=== PATIENT | female | born 1940 | race Caucasian/White ===

== ENCOUNTER → 2016-07-24 | Outpatient (CLI) | payer MEDICARE, BC ==
[~2016-07-24] MED LIST: ASPI-611 PO; CALC-278 PO; CHOL100017 PO; FOLIC; LEVO75TA4 PO; MAGN30OR PO; MAGN400C PO; MULT-806 PO; ONDA8TAB5; RANI150T12 PO; VITA1CAP
[2016-07-24 10:46] LABS: BASOPHILS % (AUTO) 0.4 % (0-2); EOSINOPHILS # (AUTO) 0.2 T/MM3 (0-0.5); EOSINOPHILS % (AUTO) 1.8 % (0-4); HCT - HEMATOCRIT 32.3 % (36-46); HGB - HEMOGLOBIN 10.2 GM/DL (12-16); IMMATURE GRANULOCYTE # (AUTO) 0.01 T/MM3 (0.00-0.03); IMMATURE GRANULOCYTE % (AUTO) 0.1 % (0.0-0.5); LYMPHOCYTES # (AUTO) 0.8 T/MM3 (1-4.8); LYMPHOCYTES % (AUTO) 7.5 % (23-45); MEAN CORPUSCULAR HGB CONC(MCHC 31.6 GM/DL (31-37); MONOCYTES # (AUTO) 0.8 T/MM3 (0-0.8); MONOCYTES % (AUTO) 7.4 % (0-9.0); NEUTROPHILS #(AUTO)-ABSOLUTE 9.2 T/MM3 (1.8-7.7); NEUTROPHILS % (AUTO) 82.8 % (33-66); WBC - WHITE BLOOD COUNT 11.1 T/MM3 (4.5-11.0)
[2016-07-24 10:57] LABS: ALBUMIN 3.6 G/DL (3.5-5.0); ALBUMIN/GLOBULIN RATIO 1.2 RATIO (1.1-2.2); ALKALINE PHOSPHATASE 61 U/L (38-126); ALT (SGPT) 20 U/L (9-52); ANION GAP 8 MEQ/L (5-15); AST (SGOT) 25 U/L (14-36); BUN/CREATININE RATIO 26 RATIO (6-26); CALCIUM 9.1 MG/DL (8.4-10.2); CHLORIDE 102 MEQ/L (98-107); CO2 - CARBON DIOXIDE 29 MEQ/L (22-30); CREATININE 0.8 MG/DL (0.7-1.2); GLOMERULAR FILTRATION RATE 70; GLUCOSE 119 MG/DL (65-110); MAGNESIUM 1.8 MG/DL (1.6-2.3); POTASSIUM 4.2 MEQ/L (3.6-5); SODIUM 139 MEQ/L (134-144); TOTAL PROTEIN 6.5 G/DL (6.3-8.2)
== END ==
LOC: LABN 10:41
PROVIDERS: ATTEND Internal Medicine Medical Oncology
DX: D70.1 Agranulocytosis secondary to cancer chemotherapy (principal); D64.81 Anemia due to antineoplastic chemotherapy
CPT/HCPCS: 80053; 83735; 85025

== ENCOUNTER 2016-08-28 15:21 | Observation (INO) | payer MEDICARE, BC ==
[~2016-08-28] VITALS: Ht 157.5 cm; Wt 61.2 kg
--- OUTSIDE RECORDS SUMMARY | 2016-08-28 15:25 | XMS REPORT | Referral Summary ---
Author Author [facility] Organization [facility] Address Unknown Phone Unavailable Care Team Providers Care Dean Of Students Name Role Phone Kandis Hearn Primary Care Physician [phone] Encounter VC Date(s): 09/15/14 - 09/15/14 [facility] [address] [place] [address] LALI Valles [id number] Discharge Diagnosis: Hypothyroidism Discharge Diagnosis: H/O ovarian cancer Discharge Diagnosis: Orthostatic hypotension Discharge Disposition: 01-Home or Self Care Attending Physician: Steve Hearn MD Admitting Physician: Steve Hearn MD Vital Signs Most recent to 1 oldest [Reference Range]: Temperature Tympanic 36.6 degC [36.6-38.1 degC] (09/15/14 11:20 AM) Peripheral Pulse 92 bpm Rate [60-100 bpm] (09/15/14 11:20 AM) Respiratory Rate 16 br/min [14-20 br/min] (09/15/14 11:20 AM) Blood Pressure 130/62 mmHg [90-140/60-90 mmHg] (09/15/14 11:20 AM) SpO2 96 % (09/15/14 11:20 AM) Problem List Condition Effective Dates Status Health Status Informant Hodgkins Active disease(Confirmed) Ovarian Active cancer(Confirmed) Allergies, Adverse Reactions, Alerts Substance Reaction Severity Status Bactrim Active Medications aspirin 81 mg, Oral, Daily, 0 Refill(s) Start Date: 05/19/14 Status: Ordered Calcium 600+D 1 tabs, Oral, Daily, 0 Refill(s) Start Date: 05/19/14 Status: Ordered folic acid 0.4 mg, Oral, Daily, 0 Refill(s) Start Date: 05/19/14 Status: Ordered HYDROcodone-acetaminophen 5 mg-325 mg oral tablet 1 tabs, Oral, q4hr, as needed for pain, 0 Refill(s) Start Date: 10/19/14 Status: Ordered levothyroxine 75 mcg (0.075 mg) oral tablet 75 mcg 1 tabs, Oral, Daily, # 90 tabs, 1 Refill(s), Pharmacy: [facility] , 1 tabs Oral Daily Start Date: 03/13/15 Status: Ordered magnesium oxide 400 mg (241.3 mg elemental magnesium) oral tablet tabs, Oral, Daily, 0 Refill(s) Start Date: 05/19/14 Status: Ordered multivitamin Daily, 0 Refill(s) Start Date: 10/19/14 Status: Ordered ondansetron 8 mg oral tablet 1 tabs, Oral, q8hr, as needed for nausea/vomiting, 0 Refill(s) Start Date: 05/19/14 Status: Ordered Vitamin D3 400 intl units oral tablet 400 Intl_Units 1 tabs, Oral, Daily, 0 Refill(s) Start Date: 10/19/14 Status: Ordered Results Chemistry Most recent to 1 oldest [Reference Range]: T4 Free [0.7-1.5 1.4 ng/dL ng/dL] (09/15/14 12:23 PM) TSH [0.35-4.94] 0.36 (09/15/14 12:23 PM) Immunizations No data available for this section Procedures Procedure Date Related Diagnosis Body Site Cholecystectomy 2009 Hysterectomy 1988 Appendectomy Social History Social History Type Response Smoking Status Never smoker Assessment and Plan Extracted from: Title: Ambulatory Patient Education Author: Steve Hearn MD Date: 09/15 Family Medicine Hypothyroidism The thyroid is a large gland located in the lower front of your neck. The thyroid gland helps control metabolism. Metabolism is how your body handles food. It controls metabolism with the hormone thyroxine. When this gland is underactive (hypothyroid), it produces too little hormone. CAUSES These include: Absence or destruction of thyroid tissue. Goiter due to iodine deficiency. Goiter due to medications. Congenital defects (since ). Problems with the pituitary. This causes a lack of TSH (thyroid stimulating hormone). This hormone tells the thyroid to turner machine more hormone. SYMPTOMS Lethargy (feeling as though you have no energy) Cold intolerance Weight gain (in spite of normal food intake) Dry skin Coarse hair Menstrual irregularity (if severe, may lead to infertility) Slowing of thought processes Cardiac problems are also caused by insufficient amounts of thyroid hormone. Hypothyroidism in the is cretinism, and is an extreme form. It is important that this form be treated adequately and immediately or it will lead rapidly to retarded physical and mental development. DIAGNOSIS To prove hypothyroidism, your caregiver may do blood tests and ultrasound tests. Sometimes the signs are hidden. It may be necessary for your caregiver to watch this illness with blood tests either before or after diagnosis and treatment. TREATMENT Low levels of thyroid hormone are increased by using synthetic thyroid hormone. This is a safe, effective treatment. It usually takes about four weeks to gain the full effects of the medication. After you have the full effect of the medication, it will generally take another four weeks for problems to leave. Your caregiver may start you on low doses. If you have had heart problems the dose may be gradually increased. It is generally not an emergency to get rapidly to normal. HOME CARE INSTRUCTIONS Take your medications as your caregiver suggests. Let your caregiver know of any medications you are taking or start taking. Your caregiver will help you with dosage schedules. As your condition improves, your dosage needs may increase. It will be necessary to have continuing blood tests as suggested by your caregiver. Report all suspected medication side effects to your caregiver. SEEK MEDICAL CARE IF: Seek medical care if you develop: Sweating. Tremulousness (tremors). Anxiety. Rapid weight loss. Heat intolerance. Emotional swings. Diarrhea. Weakness. SEEK IMMEDIATE MEDICAL CARE IF: You develop chest pain, an irregular heart beat (palpitations ), or a rapid heart beat. MAKE SURE YOU: Understand these instructions. Will watch your condition. Will get help right away if you are not doing well or get worse. Document Released: 04/27/2006 Document Revised: 07/19/2012 Document Reviewed: [employer] Patient Information 2014 [employer]. Follow Up With: Where: When: Steve Hearn [address] [place] [address] Drive; Via [facility] [place] [address] [employer] ([employer] In 4 months 01/16/2015 Comments: Extracted from: Title: Office Visit Note Author: Steve Hearn MD Date: 09/15/14 Assessment/Plan H/O ovarian cancer She continues on chemotherapy. Ordered: Office Visit Level 4 Est 21268 Hypothyroidism TSH and free T4 levels will be obtained. Ordered: Free T4 Office Visit Level 4 Est 74950 TSH 3rd Generation Orthostatic hypotension She will continue to increase her fluid intake. Ordered: Office Visit Level 4 Est 89620 Orders: levothyroxine, 1 tabs, Oral, Daily, # 90 tabs, 1 Refill(s), Pharmacy: [facility], 1 tabs Oral Daily
--- OUTSIDE RECORDS SUMMARY | 2016-08-28 15:25 | XMS REPORT | Referral Summary ---
Author Author [facility] Organization [facility] Address Unknown Phone Unavailable Care Team Providers Care Aeronautical Design Engineer Name Role Phone Kandis Hearn Primary Care Physician [phone] Encounter [facility] [id number] Date(s): 10/19/14 - 10/19/14 [facility] [address] [place], [place] [address] Discharge Diagnosis: Cervicalgia Discharge Diagnosis: Degenerative disc disease, cervical Discharge Diagnosis: Spondylosis of cervical joint Discharge Disposition: -Home or Self Care Attending Physician: Mor Velazquez Admitting Physician: Mor Velazquez Referring Physician: Steve Hearn MD Vital Signs Most recent to 1 oldest [Reference Range]: Blood Pressure 118/74 mmHg [90-140/60-90 mmHg] (10/19/14 10:50 AM) Problem List Condition Effective Dates Status [...] Daily, # 90 tabs, 1 Refill(s), Pharmacy: [facility] , 1 tabs Oral Daily Start [...] Refill(s) Start Date: 10/19/14 Status: Ordered Results No data available for this section Immunizations No data available for this section Procedures Procedure Date Related Diagnosis Body Site Cholecystectomy 2009 Hysterectomy 1988 Appendectomy Social History Social History Type Response Smoking Status Never smoker Assessment and Plan Extracted from: Title: Office Visit Note Author: Mor Velazquez Date: 10/19/14 Assessment/Plan Cervicalgia Ordered: Request for Therapies Degenerative disc disease, cervical Ordered: Request for Therapies Spondylosis of cervical joint Ordered: Request for Therapies Dr. Ervin and I discussed with the patient as well as her son Ramses who accompanied her to her appointment her investigation results. She did have a cervical spine x-ray noting multiple levels of moderate to severe degenerative disc and facet arthropathy as well as some mild encroachment the neuroforamen at multiple levels. She also had a cervical MRI from [facility] from 10/09/2014 with some mild disc bulges and some mild bilateral recess narrowing at C3 4 disc bulging at C4 5 and C5 6 and some mild left lateral recess stenosis C5 6. Dr. Ervin and I discussed with her clinically she appears have a combination of symptoms from some early cervical radiculopathy as well as mechanical neck pain on the left from C4 to 6 joints as well as perhaps some pain coming from her left shoulder joint. Discussed he could consider interventional treatments although she has not had any formal physical therapy and she will try this first. She was written an order for physical therapy Dr. Ervin recommend including cervical traction. This is 2 times a week for 4 weeks. She is taking some hydrocodone through her primary care. She is not currently taking any anti-inflammatories and Dr. Ervin suggested that she could consider trying [id number] ibuprofen up to 2 tablets 3 times a day if needed with food just on a short-term basis to see if it helps settle down some of the symptoms. There is no surgical indication at this time. She has no myelopathic signs. She comes from some distance away and so was not made a follow-up appointment but was instructed if her symptoms persisted to call back and schedule follow-up appointment will discuss interventional procedures further. She was provided copies of her x-ray and MRI reports. She and her son voiced understanding and agrees to the above plans. Physical exam findings history present illness recommendations are performed with an agreement with Dr. Metz findings. Addendum Also discussed getting an x-ray of her left shoulder if symtpoms persist. by Mor Velazquez on October 19, 2014 12:39:04 CDT
--- OUTSIDE RECORDS SUMMARY | 2016-08-28 15:25 | XMS REPORT | CCD ---
Author Author JAZMÍN CARRANZA Organization Unknown Address [address] [place], [place] [id number] Phone 0 Care Team Providers Care Rn Private Duty Name Role Phone PETER LAWSON Attending Physician [phone] ЕЛЕНА ELLISON Rounding Physician 0 Vital Signs Unknown or Not Available. Allergies Allergy Code Allergy Type Reaction Status SULFA (sulfonamide) 0 Drug allergy Active BACTRIM 787415 Drug allergy Active Procedures Unknown or Not Available. History of Immunizations Immunization Code Date Influenza, seasonal, injectable 141 02/22 Problems Unknown or Not Available. Results Unknown or Not Available. Active Medications Medication Code Dose Units Frequency Route Modification Start Date/Time Calcium 500 + D 500MG-125IU Oral Tablet 1813513 1 EACH TWICE A DAY ORAL 03/16/2012 09:45 Prescription Detail 1 EACH ORAL TWICE A DAY Aspirin 81MG Oral Tablet [id number] 81 MILLIGRAMS DAILY ORAL 03/16/2012 09:45 Prescription Detail 81 MILLIGRAMS ORAL DAILY Medications Administered During Visit Unknown or Not Available. Encounters Encounter Diagnosis Diagnosis Code Start Date Other abnormal and inconclusive findings on diagnostic imaging of breast R928 06/13/2015 Social History Smoking Status Code Start Date End Date Never smoker [id number] Patient Decision Aids Unknown or Not Available. Discharge Instructions [facility] were [facility] on 06/13/2015 with a principal diagnosis of Other abnormal and inconclusive findings on diagnostic imaging of breast. You were discharged from [facility] on 06/13/2015. Should you have any questions prior to discharge, please contact a member of your healthcare team. If you have left the hospital and have any questions, please contact your primary care physician. Chief Complaint and Reason For Visit Chief Complaint Date of Onset MM BILAT SCREEN Function Status Unknown or Not Available. Plan of Care Unknown or Not Available. Referral/Transition of Care Unknown or Not Available.
--- OUTSIDE RECORDS SUMMARY | 2016-08-28 15:25 | XMS REPORT | Referral Summary ---
Author Author [facility] Organization [facility] Address Unknown Phone Unavailable Care Team Providers Care Cleaner Assistant Name Role Phone Kandis Hearn Primary Care Physician [phone] Encounter [facility] Date(s): 09/15/14 - 09/15/14 [facility] [address] [place] [address] LALI Valles [address] Discharge Diagnosis: Hypothyroidism Discharge Diagnosis: H/O [...] Daily, # 90 tabs, 1 Refill(s), Pharmacy: [facility] , 1 tabs Oral Daily Start [...] hormone). This hormone tells the thyroid to heel turner more hormone. SYMPTOMS Lethargy (feeling as though [...] Released: 04/27/2006 Document Revised: 07/19/2012 Document Reviewed: [employer]Care Patient Information 2014 [employer]. Follow Up With: Where: When: Steve Hearn [address] [place] [address] Drive; Via [facility] [place] [address] [employer] ([employer] In 4 months 01/16/2015 Comments: Extracted from: Title: Office Visit Note Author: Steve Hearn MD Date: 09/15/14 Assessment/Plan H/O ovarian cancer She continues on chemotherapy. Ordered: Office Visit Level 4 Est 02408 Hypothyroidism TSH and free T4 levels will be obtained. Ordered: Free T4 Office Visit Level 4 Est 94895 TSH 3rd Generation Orthostatic hypotension She will continue to increase her fluid intake. Ordered: Office Visit Level 4 Est 18696 Orders: levothyroxine, 1 tabs, Oral, Daily, # 90 tabs, 1 Refill(s), Pharmacy: [facility], 1 tabs Oral Daily
--- OUTSIDE RECORDS SUMMARY | 2016-08-28 15:25 | XMS REPORT | Referral Summary ---
Author Author [facility] Organization [facility] Address Unknown Phone Unavailable Care Team Providers Care Crushing Foreman Name Role Phone Yamile Dallas Primary Care Physician [phone] Encounter [facility] Date(s): 11/06/15 - 11/06/15 [facility] [address] [place] [address] Discharge Disposition: 01-Home or Self Care Attending Physician: Zeke Whitney MD Admitting Physician: Zeke Whitney MD Vital Signs No data available for this section Problem List Condition Effective Dates Status Health Status Informant At risk of pressure Active sore(Confirmed) Hodgkins Active disease(Confirmed) Hypothyroidism(Confi Active patient rmed) Impaired skin Active integrity(Confirmed) 1 Ovarian Active cancer(Confirmed) Tissue perfusion Active alteration(Confirmed )2 1Problem added automatically by system based on initiation of Impaired Skin Integrity Plan of Care 2Problem added automatically by system based on initiation of Tissue Perfusion Cerebral Plan of Care Allergies, Adverse Reactions, Alerts Substance Reaction Severity Status Bactrim Active Medications aspirin 81 mg, Oral, Daily, 0 Refill(s) Start Date: 05/19/14 Status: Ordered Calcium 600+D 1 tabs, Oral, Daily, 0 Refill(s) Start Date: 05/19/14 Status: Ordered folic acid 0.4 mg, Oral, Daily, 0 Refill(s) Start Date: 05/19/14 Status: Ordered furosemide 20 mg oral tablet 20 mg 1 tabs, Oral, Daily, # 30 tabs, 5 Refill(s) Start Date: 10/04/15 Status: Ordered HYDROcodone-acetaminophen 5 mg-325 mg oral tablet 1 tabs, Oral, q4hr, as needed for pain, 0 Refill(s) Start Date: 10/19/14 Status: Ordered levothyroxine 75 mcg (0.075 mg) oral tablet 75 mcg 1 tabs, Oral, Daily, # 90 tabs, 1 Refill(s), Pharmacy: [facility] , 1 tabs Oral [...] Refill(s) Start Date: 10/19/14 Status: Ordered Results Hematology Most recent to 1 oldest [Reference Range]: WBC [4.8-10.8 6.4 10*3/uL 10*3/uL] (11/06/15 3:44 PM) RBC [4.00-5.20] 3.38 *LOW* (11/06/15 3:44 PM) Hgb [12.0-16.0 9.7 gm/dL gm/dL] *LOW* (11/06/15 3:44 PM) Hct [37.0-47.0 %] 30.3 % *LOW* (11/06/15 3:44 PM) MCV [82.0-99.0 fL] 89.6 fL (11/06/15 3:44 PM) MCH [27.0-32.0 pg] 28.7 pg (11/06/15 3:44 PM) MCHC [32.0-36.0 32.0 gm/dL gm/dL] (11/06/15 3:44 PM) RDW [11.5-14.5 %] 18.3 % *HI* (11/06/15 3:44 PM) Platelet [150-400 190 10*3/uL 10*3/uL] (11/06/15 3:44 PM) MPV [9.4-12.4 fL] 9.4 fL (11/06/15 3:44 PM) Immature 0.2 % Granulocytes (11/06/15 3:44 PM) [0.0-1.0 %] Neutrophils [51-75 74 % %] (11/06/15 3:44 PM) Lymphocytes [20-46 13 % %] *LOW* (11/06/15 3:44 PM) Monocytes [4-11 %] 9 % (11/06/15 3:44 PM) Eosinophils [0-4 %] 3 % (11/06/15 3:44 PM) Basophils [0-2 %] 0 % (11/06/15 3:44 PM) Neutro Absolute 4.76 10*3 [1.90-7.00 10*3] (11/06/15 3:44 PM) Lymph Absolute 0.80 10*3 [0.80-3.30 10*3] (11/06/15 3:44 PM) [place] Absolute 0.59 10*3 [0.30-1.00 10*3] (11/06/15 3:44 PM) Eos Absolute 0.22 10*3 [0.00-0.50 10*3] (11/06/15 3:44 PM) Baso Absolute 0.02 10*3 [0.00-0.20 10*3] (11/06/15 3:44 PM) Nucleated RBC 0.0 /100 WBC Automated [0 /100 (11/06/15 3:44 PM) WBC] Coagulation Most recent to 1 oldest [Reference Range]: INR [0.9-1.2] 1.0 (11/06/15 3:43 PM) PTT [25.0-35.0 30.0 seconds seconds] (11/06/15 3:43 PM) Fibrinogen Lvl 346 mg/dL [187-520 mg/dL] (11/06/15 3:43 PM) Chemistry Most recent to 1 oldest [Reference Range]: Sodium Lvl [136-144 138 mEq/L mEq/L] (11/06/15 3:43 PM) Potassium Lvl 3.7 mEq/L [3.6-5.1 mEq/L] (11/06/15 3:43 PM) Chloride [99-109 105 mEq/L mEq/L] (11/06/15 3:43 PM) CO2 [22-32 mEq/L] 27 mEq/L (11/06/15 3:43 PM) AGAP [3-20] 6 (11/06/15 3:43 PM) BUN [4-20 mg/dL] 17 mg/dL (11/06/15 3:43 PM) Glucose Lvl [70-100 100 mg/dL mg/dL] (11/06/15 3:43 PM) Creatinine Lvl 0.99 mg/dL [0.44-1.03 mg/dL] (11/06/15 3:43 PM) eGFR [>60] 54 1 *ABN* (11/06/15 3:43 PM) Calcium Lvl 8.9 mg/dL [8.6-10.0 mg/dL] (11/06/15 3:43 PM) Albumin Lvl [3.5-4.8 3.2 gm/dL gm/dL] *LOW* (11/06/15 3:43 PM) Total Protein 6.3 gm/dL [6.1-7.9 gm/dL] (11/06/15 3:43 PM) Globulin [1.9-4.3 3.1 gm/dL gm/dL] (11/06/15 3:43 PM) ALT [14-54 U/L] 14 U/L (11/06/15 3:43 PM) AST [15-41 U/L] 26 U/L (11/06/15 3:43 PM) Alk Phos [26-104 44 U/L U/L] (11/06/15 3:43 PM) Bili Total [0.2-1.2 0.6 mg/dL 2 mg/dL] (11/06/15 3:43 PM) BNP [0-99 pg/mL] 183 pg/mL *HI* (11/06/15 3:43 PM) Prealbumin [18-38 18 mg/dL mg/dL] (11/06/15 3:43 PM) Hgb A1c [4.1-5.6 %] 5.5 % (11/06/15 3:43 PM) eAvg Glucose 111.2 mg/dL (11/06/15 3:43 PM) 1Result Comment: Multiply eGFR results by 1.21 for race. 2Result Comment: Naproxen, specifically the metabolite O-desmethylnaproxen, may cause spurious elevation in Total Bilirubin levels. Urinalysis Most recent to 1 oldest [Reference Range]: UA Color Yellow (11/06/15 4:20 PM) UA Appear Cloudy *ABN* (11/06/15 4:20 PM) UA pH [5.0-8.0] 7.0 (11/06/15 4:20 PM) UA Leuk Est Trace [Negative] *ABN* (11/06/15 4:20 PM) UA Nitrite Negative [Negative] (11/06/15 4:20 PM) UA Protein Negative [Negative] (11/06/15 4:20 PM) UA Glucose Negative [Negative] (11/06/15 4:20 PM) UA Ketones Negative [Negative] (11/06/15 4:20 PM) UA Urobilinogen Negative [<1.0] (11/06/15 4:20 PM) UA Bili [Negative] Negative (11/06/15 4:20 PM) UA Blood [Negative] Negative (11/06/15 4:20 PM) UA Spec Grav 1.015 [1.003-1.030] (11/06/15 4:20 PM) Type Clean Catch (11/06/15 4:20 PM) UA WBC [0-4] 0-2 (11/06/15 4:20 PM) UA RBC [0-2] 0-2 (11/06/15 4:20 PM) Epithelial Cells None Seen (11/06/15 4:20 PM) UA Bacteria None Seen (11/06/15 4:20 PM) Crystals Amorphous (11/06/15 4:20 PM) Immunizations No data available for this section Procedures Procedure Date Related Diagnosis Body Site Catheterization Right Heart (Left, Groin)1 10/02/15 Valvuloplasty (Left, Groin)2 10/02/15 Cholecystectomy 2009 Hysterectomy 1988 Appendectomy PORT A CATH 1auto-populated from documented surgical case 2auto-populated from documented surgical case Social History Social History Type Response Smoking Status Never smoker Assessment and Plan No data available for this section
--- OUTSIDE RECORDS SUMMARY | 2016-08-28 15:25 | XMS REPORT | CCD ---
Author Author JAZMÍN CARRANZA Organization Unknown Address [address] [place], [place] [address] Phone 0 Care Team Providers Care Manufacturing Systems Engineer Name Role Phone PETER LAWSON Attending Physician [phone] ЕЛЕНА ELLISON Rounding Physician 0 Vital Signs Unknown or Not Available. Allergies Allergy Code Allergy Type Reaction Status SULFA (sulfonamide) 0 Drug allergy Active BACTRIM 917831 Drug allergy Active Procedures Unknown or Not Available. History of Immunizations Immunization Code Date Influenza, seasonal, injectable 141 02/22 Problems Unknown or Not Available. Results Unknown or Not Available. Active Medications Medication Code Dose Units Frequency Route Modification Start Date/Time Aspirin 81MG Oral Tablet [id number] 81 MILLIGRAMS DAILY ORAL 03/16/2012 09:45 Prescription Detail 81 MILLIGRAMS ORAL DAILY Medications Administered During Visit Unknown or Not Available. Encounters Encounter Diagnosis Diagnosis Code Start Date Mammographic microcalcification found on diagnostic imaging of breast R920 01/16/2016 Social History Smoking Status Code Start Date End Date Never smoker [id number] Patient Decision Aids Unknown or Not Available. Discharge Instructions You were admitted to [facility] on 01/16/2016 09:54 with a principal diagnosis of Mammographic microcalcification found on dx imaging of You were discharged from [facility] on 01/16/2016 09:54 Should you have any questions prior to discharge, please contact a member of your healthcare team. If you have left the hospital and have any questions, please contact your primary care physician. Chief Complaint and Reason For Visit Chief Complaint Date of Onset MM UNILAT DIAG Function Status Unknown or Not Available. Plan of Care Unknown or Not Available. Referral/Transition of Care Unknown or Not Available.
--- OUTSIDE RECORDS SUMMARY | 2016-08-28 15:25 | XMS REPORT | Referral Summary ---
Author Author [facility] Organization [facility] Address Unknown Phone Unavailable Care Team Providers Care Optical Store Manager Name Role Phone Kandis Hearn Primary Care Physician [phone] Encounter [facility] Date(s): 09/15/14 - 09/15/14 [facility] [address] [place] [address] LALI Valles [id number] Discharge Diagnosis: Hypothyroidism Discharge Diagnosis: H/O ovarian [...] # 90 tabs, 1 Refill(s), Pharmacy: [facility] , 1 tabs Oral Daily [...] hormone). This hormone tells the thyroid to apple turner more hormone. SYMPTOMS Lethargy (feeling as [...] Released: 04/27/2006 Document Revised: 07/19/2012 Document Reviewed: [employer] Patient Information 2014 [employer]. Follow Up With: Where: When: Steve Hearn [address] [place] [address] Drive; [place] [address] [place] ([employer] In 4 months 01/16/2015 Comments: Extracted from: Title: Office Visit Note Author: Steve Hearn MD Date: 09/15/14 Assessment/Plan H/O ovarian cancer She continues on chemotherapy. Ordered: Office Visit Level 4 Est 74198 Hypothyroidism TSH and free T4 levels will be obtained. Ordered: Free T4 Office Visit Level 4 Est 85379 TSH 3rd Generation Orthostatic hypotension She will continue to increase her fluid intake. Ordered: Office Visit Level 4 Est 29937 Orders: levothyroxine, 1 tabs, Oral, Daily, # 90 tabs, 1 Refill(s), Pharmacy: [facility], 1 tabs Oral Daily
--- OUTSIDE RECORDS SUMMARY | 2016-08-28 15:25 | XMS REPORT | Referral Summary ---
Author Author [facility] Organization [facility] Address Unknown Phone Unavailable Care Team Providers Care Major Account Representative Name Role Phone Yamile Dallas Primary Care Physician [phone] Encounter VC SOLOMON [id number] Date(s): 12/11/15 - 12/11/15 [facility] [address] [place] [address] Discharge Disposition: 01-Home or Self Care Attending Physician: Zeke Whitney MD Admitting Physician: Zeke Whitney MD Vital Signs No data available for this section Problem List Condition Effective Dates Status Health Status Informant At risk of pressure Resolved sore(Confirmed) Cardiac Resolved disorder(Confirmed)1 Hodgkins Active disease(Confirmed) Hypothyroidism(Confi Active patient rmed) Impaired skin Active integrity(Confirmed) 2 Ovarian Active cancer(Confirmed) Tissue perfusion Resolved alteration(Confirmed )3 1Problem added automatically by system based on initiation of Cardiac Output/ Ineffective Cardiac Perfusion Plan of Care 2Problem added automatically by system based on initiation of Impaired Skin Integrity Plan of Care 3Problem added automatically by system based on initiation [...] 5 Refill(s) Start Date: 10/04/15 Status: Ordered levothyroxine 75 mcg (0.075 mg) oral tablet 75 mcg 1 tabs, Oral, Daily, # 90 tabs, 1 Refill(s), Pharmacy: [facility] , 1 tabs Oral Daily Start Date: 03/13/15 Status: Ordered magnesium oxide 400 mg (241.3 mg elemental magnesium) oral tablet tabs, Oral, Daily, 0 Refill(s) Start Date: 05/19/14 Status: Ordered multivitamin 1 tabs, Oral, Daily, 0 Refill(s) Start Date: 10/19/14 Status: Ordered Plavix 75 mg oral tablet 75 mg 1 tabs, Oral, Daily, # 30 tabs, 5 Refill(s) Start Date: 11/09/15 Status: Ordered potassium chloride 10 mEq oral tablet, extended release 10 mEq 1 tabs, Oral, Daily, # 30 tabs, 5 Refill(s) Start Date: 11/09/15 Status: Ordered Vitamin D3 400 intl units oral tablet 400 Intl_Units 1 tabs, Oral, Daily, 0 Refill(s) Start Date: 10/19/14 Status: Ordered Results No data available for this section Immunizations No data available for this section Procedures Procedure Date Related Diagnosis Body Site Replacement Aortic Valve Transcatheter 11/07/15 Transfemoral Approach1 Catheterization Right Heart (Left, Groin)2 10/02/15 Valvuloplasty (Left, Groin)3 10/02/15 Cholecystectomy 2009 Hysterectomy 1988 Appendectomy PORT A CATH 1auto-populated from documented surgical case 2auto-populated from documented surgical case 3auto-populated from documented surgical case Social History Social History Type Response Smoking Status Never smoker Assessment and Plan No data available for this section
--- OUTSIDE RECORDS SUMMARY | 2016-08-28 15:25 | XMS REPORT | Referral Summary ---
Author Author [facility] Organization [facility] Address Unknown Phone Unavailable Care Team Providers Care Clinic Manager Name Role Phone Kandis Hearn Primary Care Physician [phone] Encounter VC Date(s): 09/15/14 - 09/15/14 [facility] [address] [place] [address] LALI Valles [id number] Discharge Diagnosis: Hypothyroidism Discharge Diagnosis: H/O [...] Daily, # 90 tabs, 1 Refill(s), Pharmacy: [facility] , 1 tabs Oral [...] hormone). This hormone tells the thyroid to automatic glove turner and former more hormone. SYMPTOMS Lethargy (feeling as though [...] Released: 04/27/2006 Document Revised: 07/19/2012 Document Reviewed: [employer] Patient Information 2014 [employer]. Follow Up With: Where: When: Steve Hearn [address] [place] [address] Drive; [place] [facility] [place] [address] el? (1Tripping In 4 months 01/16/2015 Comments: Extracted from: Title: Office Visit Note Author: Steve Hearn MD Date: 09/15/14 Assessment/Plan H/O ovarian cancer She continues on chemotherapy. Ordered: Office Visit Level 4 Est 19067 Hypothyroidism TSH and free T4 levels will be obtained. Ordered: Free T4 Office Visit Level 4 Est 72790 TSH 3rd Generation Orthostatic hypotension She will continue to increase her fluid intake. Ordered: Office Visit Level 4 Est 31997 Orders: levothyroxine, 1 tabs, Oral, Daily, # 90 tabs, 1 Refill(s), Pharmacy: [facility], 1 tabs Oral Daily
--- OUTSIDE RECORDS SUMMARY | 2016-08-28 15:25 | XMS REPORT | CCD ---
Author Author JAZMÍN CARRANZA Organization Unknown Address [address], [place] [address] Phone 0 Care Team Providers Care Winding Lathe Operator Name Role Phone Leroy WOODS Attending Physician 0 Vital Signs Unknown or Not Available. Allergies Allergy Code Allergy Type Reaction Status SULFA (sulfonamide) 0 Drug allergy Active BACTRIM 518024 Drug allergy Active Procedures Unknown or Not Available. History of Immunizations Immunization Code Date Influenza, seasonal, injectable 141 02/22 Problems Unknown or Not Available. Results CREATININE - Collect Date/Time: 04/09/2016 13:48 Test Name Code Test Result Test Units Test Ref Range CREATININE 0.77 mg/ dL L=0.60 H=1.30 AGE 75 YEARS GFR 72.9 L=60.0 H=120 Active Medications Medication Code Dose Units Frequency Route Modification Start Date/Time Aspirin 81MG Oral Tablet [id number] 81 MILLIGRAMS DAILY ORAL 03/16/2012 09:45 Prescription Detail 81 MILLIGRAMS ORAL DAILY Medications Administered During Visit Unknown or Not Available. Encounters Encounter Diagnosis Diagnosis Code Start Date Other specified soft tissue disorders M7989 04/09/2016 Social History Smoking Status Code Start Date End Date Never smoker [id number] Patient Decision Aids Unknown or Not Available. Discharge Instructions You were admitted to [facility] on 04/09/2016 13:40 with a principal diagnosis of Other specified soft tissue disorders You had the following tests done: CREATININE You were discharged from [facility] on 04/09/2016 13:40 Should you have any questions prior to discharge, please contact a member of your healthcare team. If you have left the hospital and have any questions, please contact your primary care physician. Chief Complaint and Reason For Visit Chief Complaint Date of Onset CT SCAN/LAB Function Status Unknown or Not Available. Plan of Care Unknown or Not Available. Referral/Transition of Care Unknown or Not Available.
--- OUTSIDE RECORDS SUMMARY | 2016-08-28 15:26 | XMS REPORT | Referral Summary ---
Author Author [facility] Organization [facility] Address Unknown Phone Unavailable Care Team Providers Care Material Handler 1St Shift Name Role Phone Yamile Dallas Primary Care Physician [phone] Encounter VC Date(s): 05/27/16 - 05/27/16 [facility] [address] [place] [address] Discharge Disposition: 01-Home or Self Care Attending Physician: Zeke Whitney MD Vital Signs No [...] 0 Refill(s) Start Date: 05/19/14 Status: Ordered ferrous sulfate 1 tabs, Oral, BID, 0 Refill(s) Start Date: 05/27/16 Status: Ordered folic acid 0.4 mg, Oral, Daily, 0 Refill(s) Start Date: 05/19/14 Status: Ordered furosemide 20 mg oral tablet 20 mg 1 tabs, Oral, Daily, # 30 tabs, 5 Refill(s) Start Date: 10/04/15 Status: Ordered levothyroxine 75 mcg (0.075 mg) oral tablet 75 mcg 1 tabs, Oral, Daily, # 90 tabs, 1 Refill(s), Pharmacy: [facility] , 1 tabs Oral Daily Start Date: 03/13/15 Status: Ordered magnesium oxide 400 mg (241.3 mg elemental magnesium) oral tablet 400 mg 1 tabs, Oral, Daily, 0 Refill(s) Start Date: 05/19/14 Status: Ordered Misc Medication See Instructions, CANCER MEDICATIONS, 0 Refill(s) Start Date: 05/27/16 Status: Ordered multivitamin 1 tabs, Oral, Daily, 0 Refill(s) Start Date: 10/19/14 Status: Ordered potassium chloride 10 mEq oral tablet, extended release 10 mEq 1 tabs, Oral, Daily, # 30 tabs, 5 Refill(s) Start Date: 11/09/15 Status: Ordered Vitamin B12 1 tabs, Oral, Daily, 0 Refill(s) Start Date: 05/27/16 Status: Ordered Vitamin C 1 tabs, Oral, Daily, 0 Refill(s) Start Date: 05/27/16 Status: Ordered Vitamin D3 400 intl units [...] Extracted from: Title: Office Visit Note Author: Zeke Whitney MD Date: 05/27/16 Assessment/Plan NonrheumaticValvular Heart Disease - symptomatic critical aortic valve stenosisconsistent with NYHA class III. - s/p BAV on 10-06-2015 - s/p 25mm PORTICO TAVR using right percutaneous TransFemoral [id number]: ASA/Plavix - doing well. NYHA class I Echo with very good results Coronary artery disease - mild aneurysmin the mid LAD and mild to moderate at most moderate mid LAD disease - ASA/plavix Essential Hypertension - well controlled Hypothyroidism - continue replacement carotid artery disease with severe left stenosis in need to CEA
--- OUTSIDE RECORDS SUMMARY | 2016-08-28 15:26 | XMS REPORT | Referral Summary ---
Author Author [facility] Organization [facility] Address Unknown Phone Unavailable Care Team Providers Care Diesel Engine Operator Name Role Phone Kandis Hearn Primary Care Physician [phone] Encounter VC Date(s): 02/07/15 - 02/07/15 [facility] [address] [place] [address] LALI Valles [id number] Discharge Diagnosis: Sensation disturbance of skin Discharge Diagnosis: Personal history of ovarian cancer Discharge Disposition: 01-Home or Self Care Attending Physician: Steve Hearn MD Admitting Physician: Steve Haern MD Vital Signs Most recent to 1 oldest [Reference Range]: Temperature Tympanic 37.0 degC [36.6-38.1 degC] (02/07/15 1:24 PM) Peripheral Pulse 83 bpm Rate [60-100 bpm] (02/07/15 1:24 PM) Blood Pressure 124/70 mmHg [90-140/60-90 mmHg] (02/07/15 1:24 PM) SpO2 96 % (02/07/15 1:24 PM) Problem List Condition Effective Dates Status Health [...] levothyroxine 75 mcg (0.075 mg) oral tablet 1 tabs, Oral, Daily, # 90 tabs, 1 Refill(s), Pharmacy: [facility], 1 tabs Oral Daily Start Date: 09/15/14 Status: Ordered magnesium oxide 400 mg (241.3 mg elemental magnesium) oral tablet tabs, Oral, Daily, 0 Refill(s) Start Date: 05/19/14 Status: Ordered multivitamin Daily, 0 Refill(s) Start Date: 10/19/14 Status: Ordered ondansetron 8 mg oral tablet 1 tabs, Oral, q8hr, as needed for nausea/vomiting, 0 Refill(s) Start Date: 05/19/14 Status: Ordered topotecan 1 mg/mL intravenous solution See Instructions, Weekly dose per oncology, # 1 amp, 1 Refill(s), other reason ( Rx) Start Date: 01/16/15 Stop Date: 02/17/15 Status: Ordered Vitamin D3 400 intl units oral tablet 400 Intl_Units 1 tabs, Oral, Daily, 0 Refill(s) Start Date: 10/19/14 Status: Ordered Results Hematology Most recent to 1 oldest [Reference Range]: WBC [5.0-10.0 3.5 10*3/uL 10*3/uL] *LOW* (02/07/15 2:28 PM) RBC [3.70-5.20] 3.33 *LOW* (02/07/15 2:28 PM) Hgb [12.0-16.0 10.1 gm/dL gm/dL] *LOW* (02/07/15 2:28 PM) Hct [37.0-47.0 %] 31.0 % *LOW* (02/07/15 2:28 PM) MCV [80.0-96.0 fL] 93.1 fL (02/07/15 2:28 PM) MCH [26.0-34.0 pg] 30.3 pg (02/07/15 2:28 PM) MCHC [32.0-36.0 32.6 gm/dL gm/dL] (02/07/15 2:28 PM) RDW [0.0-14.5 %] 15.8 % *HI* (02/07/15 2:28 PM) Platelet [150-400 313 10*3/uL 10*3/uL] (02/07/15 2:28 PM) MPV [8.8-14.8 fL] 8.6 fL *LOW* (02/07/15 2:28 PM) Neutrophils [50-70 61 % %] (02/07/15 2:28 PM) Lymphocytes [20-40 18 % %] *LOW* (02/07/15 2:28 PM) Monocytes [4-8 %] 18 % *HI* (02/07/15 2:28 PM) Eosinophils [0-6 %] 3 % (02/07/15 2:28 PM) Basophils [0-2 %] 1 % (02/07/15 2:28 PM) Neutro Absolute 2.13 10*3 [2.50-7.00 10*3] *LOW* (02/07/15 2:28 PM) Lymph Absolute 0.62 10*3 [1.00-4.00 10*3] *LOW* (02/07/15 2:28 PM) [place] Absolute 0.63 10*3 [0.20-0.80 10*3] (02/07/15 2:28 PM) Eos Absolute 0.10 10*3 [0.00-0.60 10*3] (02/07/15 2:28 PM) Baso Absolute 0.04 [0.00-0.30] (02/07/15 2:28 PM) Immunizations No data available for this section Procedures Procedure Date Related Diagnosis Body Site Cholecystectomy 2009 Hysterectomy 1988 Appendectomy Social History Social History Type Response Smoking Status Never smoker Assessment and Plan Extracted from: Title: Ambulatory Patient Education Author: Steve Hearn MD Date: Family Medicine Paresthesia Paresthesia is an abnormal burning or prickling sensation. This sensation is generally felt in the hands, arms, legs, or feet. However, it may occur in any part of the body. It is usually not painful. The feeling may be described as: Tingling or numbness. "Pins and needles." Skin crawling. Buzzing. Limbs "falling asleep." Itching. Most people experience temporary (transient) paresthesia at some time in their lives. CAUSES Paresthesia may occur when you breathe too quickly (hyperventilation). It can also occur without any apparent cause. Commonly, paresthesia occurs when pressure is placed on a nerve. The feeling quickly goes away once the pressure is removed. For some people, however, paresthesia is a long-lasting (chronic) condition caused by an underlying disorder. The underlying disorder may be: A traumatic, direct injury to nerves. Examples include a: Broken (fractured) neck. Fractured skull. A disorder affecting the brain and spinal cord (central nervous system). Examples include: Transverse myelitis. Encephalitis. Transient ischemic attack. Multiple sclerosis. Stroke. Tumor or blood vessel problems, such as an arteriovenous malformation pressing against the brain or spinal cord. A condition that damages the peripheral nerves (peripheral neuropathy). Peripheral nerves are not part of the brain and spinal cord. These conditions include: Diabetes. Peripheral vascular disease. Nerve entrapment syndromes, such as carpal tunnel syndrome. Shingles. Hypothyroidism. Vitamin B12 deficiencies. Alcoholism. Heavy metal poisoning (lead, arsenic). Rheumatoid arthritis. Systemic lupus erythematosus. DIAGNOSIS Your caregiver will attempt to find the underlying cause of your paresthesia. Your caregiver may: Take your medical history. Perform a physical exam. Order various lab tests. Order imaging tests. TREATMENT Treatment for paresthesia depends on the underlying cause. HOME CARE INSTRUCTIONS Avoid drinking alcohol. You may consider massage or acupuncture to help relieve your symptoms. Keep all follow-up appointments as directed by your caregiver. SEEK IMMEDIATE MEDICAL CARE IF: You feel weak. You have trouble walking or moving. You have problems with speech or vision. You feel confused. You cannot control your bladder or bowel movements. You feel numbness after an injury. You faint. Your burning or prickling feeling gets worse when walking. You have pain, cramps, or dizziness. You develop a rash. MAKE SURE YOU: Understand these instructions. Will watch your condition. Will get help right away if you are not doing well or get worse. Document Released: 04/17/2003 Document Revised: 07/19/2012 Document Reviewed: [employer] Patient Information 2015 [employer]. This information is not intended to replace advice given to you by your health care provider. Make sure you discuss any questions you have with your health care provider. Follow Up With: Where: When: Steve [address]; [facility] LALI Zheng [address] Business (1) Within 3 to 5 days, only if needed Comments: Extracted from: Title: Office Visit Note Author: Steve Hearn MD Date: 02/07/15 Assessment/Plan Personal history of ovarian cancer She will continue follow-up with her oncologist. Sensation disturbance of skin CT scan of the brain did not show acute changes. Some microvascular changes are noted. CBC and conference of metabolic profile were normal. She will continue observation at the present time and will report if she develops any neurologic changes. Orders: CT Head or Brain w/o Contrast
--- OUTSIDE RECORDS SUMMARY | 2016-08-28 15:26 | XMS REPORT | Referral Summary ---
Author Author [facility] Organization [facility] Address Unknown Phone Unavailable Care Team Providers Care Intelligence Officer Basic Name Role Phone Kandis Hearn Primary Care Physician [phone] Encounter VC Date(s): 01/16/15 - 01/16/15 [facility] [address] [place] [address] LALI Valles [address] Discharge Diagnosis: Ovarian cancer Discharge Diagnosis: Hypothyroidism Discharge Diagnosis: GERD (gastroesophageal reflux disease) Discharge Disposition: -Home or Self Care Attending Physician: Steve Hearn MD Admitting Physician: Steve Hearn MD Vital Signs Most recent to 1 oldest [Reference Range]: Temperature Tympanic 36.8 degC [36.6-38.1 degC] (01/16/15 8:59 AM) Peripheral Pulse 102 bpm Rate [60-100 bpm] *HI* (01/16/15 8:59 AM) Blood Pressure 108/70 mmHg [90-140/60-90 mmHg] (01/16/15 8:59 AM) SpO2 96 % (01/16/15 8:59 AM) Problem List Condition Effective Dates Status [...] Daily, # 90 tabs, 1 Refill(s), Pharmacy: [facility] , 1 tabs Oral Daily Start Date: [...] Patient Education Author: Steve Hearn MD Date: 01/16 Family Medicine Ovarian Cancer The ovaries are the parts of the female reproductive system that produce eggs. Women have two ovaries. They are located on either side of the uterus. Ovarian cancer is an abnormal growth of tissue (tumor) in one or both ovaries that is cancerous (malignant). Unlike noncancerous (benign) tumors, malignant tumors can spread to other parts of your body. CAUSES The exact cause of ovarian cancer is unknown. RISK FACTORS There are a number of risk factors that can increase your chances of getting ovarian cancer. They include: Age. Ovarian cancer is most common in women aged 5075 years. Being . Personal or family history of endometrial, colon, breast, or ovarian cancer. Having the BRCA 1 and BRCA 2 genes. Using fertility medicines. Starting menstruation before the age of 12 years. Starting menopause after the age of 50 years. Becoming for the first time at the age of 35 years or older. Never being . Having hormone replacement therapy. Eating high amounts of animal fat. SYMPTOMS Early ovarian cancer often does not cause symptoms. As the cancer grows, symptoms may include: Unexplained weight loss. Abdominal pain, swelling, or bloating. Pain and pressure in the back and pelvis. Abnormal vaginal bleeding. Loss of appetite. Frequent urination. Pain during intercourse. Fatigue. DIAGNOSIS Your caregiver will ask about your medical history. He or she may also perform a number of procedures, such as: A pelvic exam. Your caregiver will feel the organs in the pelvis for any lumps or changes in their shape or size. Imaging tests, such as computed tomography (CT) scans, ultrasound tests, or magnetic resonance imaging (MRI). Blood tests. Your cancer will be staged to determine its severity and extent. Staging is a careful attempt to find out the size of the tumor, whether the cancer has spread , and if so, to what parts of the body. You may need to have more tests to determine the stage of your cancer. The test results will help determine what treatment plan is best for you. STAGES Stage I. The cancer is found in only one or both ovaries. Stage II. The cancer has spread to other parts of the pelvis, such as the uterus or fallopian tubes. Stage III. The cancer has spread outside the pelvis to the abdominal cavity or to the lymph nodes in the abdomen. Stage IV. The cancer has spread outside the abdomen to areas such as the liver or lungs. TREATMENT Most women with ovarian cancer are treated with a combination of surgery and chemotherapy. If the cancer is found at an early stage, surgery may be done to remove one ovary and its fallopian tube. For more advanced cases, surgery may be done to remove the uterus, cervix, fallopian tubes, and ovaries. Your caregiver may also remove the lymph nodes near the tumor and some tissue in the abdomen. Chemotherapy is the use of drugs to kill cancer cells. Chemotherapy may be used before or after the surgery. HOME CARE INSTRUCTIONS Only take [id number] or prescription medicines as directed by your caregiver. Maintain a healthy diet. Consider joining a support group. If you are feeling stressed because you have ovarian cancer, a support group may help you learn to cope with the disease. Seek advice to help you manage the treatment of side effects. Keep all follow-up appointments as directed by your caregiver. SEEK IMMEDIATE MEDICAL CARE IF: You have new or worsening symptoms. You have a fever during your chemotherapy treatment. Document Released: 03/17/2005 Document Revised: 04/13/2013 Document Reviewed: [facility] Patient Information 2014 [employer]. This information is not intended to replace advice given to you by your health care provider. Make sure you discuss any questions you have with your health care provider. Follow Up With: Where: When: Steve Hearn [address] [place] [address] [address]; Via [facility] LALI Zheng [phone] [employer] In 4 months 05/18/2015 Comments: Extracted from: Title: Office Visit Note Author: Steve Hearn MD Date: 01/16/15 Assessment/Plan GERD (gastroesophageal reflux disease) She will continue her same medication. Hypothyroidism She will continue levothyroxine. Ovarian cancer She will continue her present course of chemotherapy. Orders: topotecan, See Instructions, Weekly dose per oncology, # 1 amp, 1 Refill(s), other reason (Rx)
--- OUTSIDE RECORDS SUMMARY | 2016-08-28 15:26 | XMS REPORT | Continuity of Care Document ---
Demographics Preferred Language Unknown Marital Status Unknown Pentecostalism Affiliation Unknown Race Unknown Ethnic Group Unknown Author Author [facility] Organization [facility] Address Unknown Phone Unavailable Allergies Active Description Code Type Severity Reaction Onset Reported/Identified Relationship to Patient Clinical Status Yes Bactrim 5086 Unknown N/A Medications Medication Packaging Start Date Stop Date Route Dosage Sig DOCUSATE SODIUM 07/16/2016 07/17/2016 BIDPRN ACETAMINOPHEN 07/16/2016 07/17/2016 Q4HPRN ACETAMINOPHEN 07/16/2016 07/17/2016 Q4HPRN ALUM-MAG HYDROXIDE-SIMETH 07/16/2016 07/17/2016 Q4HPRN MAGNESIUM HYDROXIDE 07/16/2016 07/17/2016 HSPRN HYDROCODONE-ACET 5-325MG 07/16/2016 07/17/2016 Q3HPRN ONDANSETRON HCL 07/16/2016 07/17/2016 Q6HPRN SODIUM CHLORIDE 0.9 % 07/16/2016 07/17/2016 PRNIV SODIUM CHLORIDE 0.9% 07/16/2016 07/17/2016 PRNIV DEXTRAN 40 IN 0.9 % NACL 07/16/2016 07/17/2016 PRNIV METOCLOPRAMIDE 07/16/2016 07/17/2016 Q6HPRN MORPHINE 07/16/2016 07/17/2016 [id number] MAGNESIUM OXIDE 07/16/2016 07/17/2016 0700 FOLIC ACID 07/16/2016 07/17/2016 QD VITAMIN D 07/16/2016 07/17/2016 QD ASPIRIN 07/16/2016 07/17/2016 0700 CALCIUM CARBONATE-VITAMIN D3 07/16/2016 07/17/2016 QD ASPIRIN, BUFFERED 07/16/2016 07/16/2016 QD MULTIVITAMIN 07/16/2016 07/17/2016 QD ASCORBIC ACID 07/16/2016 07/17/2016 0700 FERROUS SULFATE 07/16/2016 07/17/2016 0700 POTASSIUM CHLORIDE 07/16/2016 07/17/2016 0700 LEVOTHYROXINE 07/16/2016 07/17/2016 ACB FUROSEMIDE 07/16/2016 07/17/2016 QD BENZOCAINE-PECTIN 07/16/2016 07/17/2016 PRN CEFAZOLIN 07/16/2016 07/17/2016 Q8H Problems Date Dx Coded Attending Type Code Diagnosis Diagnosed By 05/11/2016 NEHEMIAH CADENA S I65.23 OCCLUSION AND STENOSIS OF BILATERAL CAROTID ARTERIES NEHEMIAH CADENA 05/11/2016 NEHEMIAH CADENA P Z09 ENCOUNTER FOR FOLLOW-UP EXAMINATION AFTER COMPLETED TREATMENT FOR CONDITIONS OTHER THAN MALIGNANT NEOPLASM NEHEMIAH CADENA Procedures Results Test Result Range CBC WITH DIFF (REFLEX) - 07/16/16 06:45 WBC - WHITE CELL COUNT 7.6 X10(3) 4.5-11.0 RBC - RED CELL COUNT 3.61 X10(6) 4.20-5.40 PLATELET COUNT 284 X10(3) 150-450 HEMOGLOBIN 11.0 g/dl 12.0-16.0 HEMATOCRIT 33.6 % 38.0-47.0 MCV 93.1 fL 80.0-96.0 MCH 31 pg 27-31 MCHC 32.7 % 32.0-36.0 LYMPHS % 20-45 MONOS % 0-15 SEGS % 40-80 BANDS % 0-5 EOS % 0-3 BASOS % N/A-N/A METAS MYELOS PROMYELO BLASTS NRBC N/A-5 ANISO POIK MACROCYTIC MICROCYTIC HYPO POLY OVALO MANUAL DIFFERENTIAL HEADING M.DIFF REACT LYM % 0-1 RBC MORP WBC MORP PLT MORP BMP - BASIC METABOLIC PANEL - 07/16/16 06:45 GLUCOSE 103 mg/dl 74-106 BUN 17 mg/dl 7-18 CREATININE 0.87 mg/dl 0.55-1.02 eGFR >60 mL/min SODIUM (NA) 141 mEq/L 136-146 POTASSIUM, BLOOD 4.1 mEq/L 3.5-5.1 CHLORIDE 105 mEq/L 98-107 CO2 (BICARBONATE) 30 mEq/L 21-32 CALCIUM 9.6 mg/dl 8.5-10.1 HOLD SPECIMEN FOR BLOOD BANK - 07/16/16 06:45 HOLD SPECIMEN FOR BLOOD BANK ARC URINALYSIS W/MICROSCOPIC - 07/16/16 06:57 COLOR STRAW STRAW CLARITY/APPEARANCE HAZY CLEAR BILIRUBIN URINE HEADER Interpret positive Bilirubin results with caution. Large amounts of urobilinogen in the urine affect the color change of the bilirubin test (false positive). Highly basic urines (pH>9) might show false-positive readings on bilirubin. False-positive readings are obtained during treatment with imipenem, penicillin, and p- aminosalicyclic acid. UROBILINOGEN (URINALYSIS) NORMAL NORMAL YEAST (URINALYSIS) per hpf UA MICRO VOL HEADER Microscopic reference ranges are based on 12ml total spun volume. CRYSTALS (URINALYSIS) per hpf SP GRAV 1.015 1.005-1.025 PH 6.5 6.0-8.0 LEUKO 500 Torsetn/ul NEG NITRITE NEG NEG PROTEIN NEG. NEG. GLUCOSE NORMAL NORMAL KETONES NEG NEG BILIRUBIN NEG NEG BLOOD NEG NEG WBC 20-50 per hpf NEG. RBC NEG per hpf NEG EPITH 0-2 per hpf NEG. BACTERIA NUMEROUS per hpf NEG. MUCUS PRESENT per hpf NEG. HYAL CAST >12 per lpf NEG. GRAN CAST 1-3 per lpf SPUN VOLUME 12 ml URINALYSIS W/MICROSCOPIC - 07/17/16 07:50 COLOR STRAW STRAW CLARITY/APPEARANCE CLEAR CLEAR BILIRUBIN URINE HEADER Interpret positive Bilirubin results with caution. Large amounts of urobilinogen in the urine affect the color change of the bilirubin test (false positive). Highly basic urines (pH>9) might show false-positive readings on bilirubin. False-positive readings are obtained during treatment with imipenem, penicillin, and p- aminosalicyclic acid. UROBILINOGEN (URINALYSIS) NORMAL NORMAL YEAST (URINALYSIS) per hpf UA MICRO VOL HEADER Microscopic reference ranges are based on 12ml total spun volume. CRYSTALS (URINALYSIS) per hpf SP GRAV 1.015 1.005-1.025 PH 6.0 6.0-8.0 LEUKO NEG NEG NITRITE NEG NEG PROTEIN NEG. NEG. GLUCOSE NORMAL NORMAL KETONES NEG NEG BILIRUBIN NEG NEG BLOOD NEG NEG WBC 0-2 per hpf NEG. RBC NEG per hpf NEG EPITH 0-2 per hpf NEG. BACTERIA RARE per hpf NEG. MUCUS per hpf NEG. HYAL CAST 0-1 per lpf NEG. GRAN CAST per lpf SPUN VOLUME 12 ml CULTURE, URINE - 07/17/16 07:50 Urine Culture Source: Urine Collected: 07/17/16 07:50 Encounters ACCT No. Visit Date/Time Discharge Status Pt. Type Provider Facility Loc./Unit Complaint [id number] 05/09/2016 09:47:00 ACT Unknown [id number] 03/17/2016 14:04:00 ACT Unknown [id number] 03/17/2016 14:04:00 ACT Unknown [id number] 03/17/2016 14:04:00 ACT Unknown [id number] 07/04/2015 12:46:00 ACT Unknown [id number] 06/29/2015 09:49:00 ACT Unknown [id number] 05/31/2015 17:47:00 ACT Unknown [id number] 06/06/2014 07:55:00 ACT Unknown [id number] 06/06/2014 07:44:00 ACT Unknown [id number] 03/24/2014 10:00:00 ACT Unknown [id number] 01/13/2014 12:58:00 ACT Unknown [id number] 06/28/2013 11:48:00 ACT Unknown [id number] 06/28/2013 10:15:00 ACT Unknown [id number] 03/29/2013 11:06:00 ACT Unknown [id number] 03/17/2013 09:15:00 ACT Unknown
--- OUTSIDE RECORDS SUMMARY | 2016-08-28 15:26 | XMS REPORT | CCD ---
Author Author [facility] Organization Unknown Address [address], [place] [address] Phone 0 Care Team Providers Care Follow Up Clerk Name Role Phone ЕЛЕНА ELLISON Attending Physician 0 JOSSE ASENCIO Roundrach Physician [phone] Vital Signs Unknown or Not Available. Allergies Allergy Code Allergy Type Reaction Status SULFA (sulfonamide) 0 Drug allergy Active BACTRIM 470168 Drug allergy Active Procedures Unknown or Not Available. History of Immunizations Immunization Code Date Influenza, seasonal, injectable 141 02/22 Problems Unknown or Not Available. Results CBC W/ DIFF - Collect Date/Time: 01/29/2015 17:00 Test Name Code Test Result Test Units Test Ref Range WBC 4.0 x10^3 L=4.8 H=10.8 RBC 3.01 x10^6 L=4.20 H=5.40 HEMOGLOBIN 9.2 g/dL L=12.0 H=16.0 HEMATOCRIT 27.1 % L=37.0 H=47.0 MCV 90 fL L=80 H=100 MCH 30.6 pg L=27.0 H=33.0 MCHC 33.9 g/dL L=33.0 H=37.0 RDW 14.7 % L=11.5 H=14.5 PLATELETS 193 x10^3 L=150 H=450 MPV 6.8 fL L=7.8 H=11.0 NEUTROPHILS 77.1 % L=40.0 H=80.0 LYMPHOCYTES 15.9 % L=20.0 H=45.0 MONOCYTES 3.9 % L=0.0 H=10.0 EOSINOPHILS 3.0 % L=0.0 H=5.0 BASOPHILS 0.1 % L=0.0 H=2.0 REFLEX MAN DIFF NO N /A Active Medications Medication Code Dose Units Frequency Route Modification Start Date/Time Calcium 500 + D 500MG-125IU Oral Tablet [id number] 1 EACH TWICE A DAY ORAL 03/16/2012 09:45 Prescription Detail 1 EACH ORAL TWICE A DAY Aspirin 81MG Oral Tablet [id number] 81 MILLIGRAMS DAILY ORAL 03/16/2012 09:45 Prescription Detail 81 MILLIGRAMS ORAL DAILY Medications Administered During Visit Unknown or Not Available. Encounters Encounter Diagnosis Diagnosis Code Start Date MALIGN NEOPL OVARY 18301/29/2015 Social History Smoking Status Code Start Date End Date Never smoker [id number] Patient Decision Aids Unknown or Not Available. Discharge Instructions You were admitted to [facility] on 01/29/2015 with a principal diagnosis of MALIGN NEOPL OVARY. You were discharged from [facility] on 01/29/2015. Should you have any questions prior to discharge, please contact a member of your healthcare team. If you have left the hospital and have any questions, please contact your primary care physician. Chief Complaint and Reason For Visit Chief Complaint Date of Onset LAB Function Status Unknown or Not Available. Plan of Care Unknown or Not Available. Referral/Transition of Care Unknown or Not Available.
--- OUTSIDE RECORDS SUMMARY | 2016-08-28 15:26 | XMS REPORT | CCD ---
Author Author [facility] Organization Unknown Address [address], [place] [address] Phone 0 Care Team Providers Care House Shorer Name Role Phone RONAN SOLO Attending Physician 0 Vital Signs Unknown or Not Available. Allergies Allergy Code Allergy Type Reaction Status SULFA (sulfonamide) 0 Drug allergy Active BACTRIM 372786 Drug allergy Active Procedures Unknown or Not Available. History of Immunizations Immunization Code Date Influenza, seasonal, injectable 141 02/22 Problems Unknown or Not Available. Results Unknown or Not Available. Active Medications Medication Code Dose Units Frequency Route Modification Start Date/Time Calcium 500 + D 500MG-125IU Oral Tablet [id number] 1 EACH TWICE A DAY ORAL 03/16/2012 09:45 Aspirin 81MG Oral Tablet [id number] 81 MILLIGRAMS DAILY ORAL 03/16/2012 09:45 Medications Administered During Visit Unknown or Not Available. Encounters Unknown or Not Available. Social History Smoking Status Code Start Date End Date Never smoker [id number] Patient Decision Aids Unknown or Not Available. Discharge Instructions You were admitted to [facility] on 05/17/2014. You were discharged from [facility] on 05/17/2014. Should you have any questions prior to [...]
--- OUTSIDE RECORDS SUMMARY | 2016-08-28 15:26 | XMS REPORT | Referral Summary ---
Author Author [facility] Organization [facility] Address Unknown Phone Unavailable Care Team Providers Care Fitness Sales Associate Name Role Phone Yamile Dallas Primary Care Physician [phone] Encounter VC SOLOMON [id number] Date(s): 10/02/15 - 10/02/15 [facility] [address] [place] [address] [phone] Discharge Disposition: 01-Home or Self Care Attending Physician: Zeke Whitney MD Admitting Physician: Zeke Whitney MD Referring Physician: Violette Guzman MD Vital Signs Most recent to 1 oldest [Reference Range]: Heart Rate Monitored 66 bpm [60-100 bpm] (10/02/15 4:46 PM) Respiratory Rate 14 br/min [14-20 br/min] (10/02/15 4:46 PM) Systolic Blood 104 mmHg Pressure [90-140 (10/02/15 4:46 PM) mmHg] Diastolic Blood 46 mmHg Pressure [60-90 *LOW* mmHg] (10/02/15 4:46 PM) Mean Arterial 65 mmHg Pressure, Cuff (10/02/15 4:46 PM) SpO2 99 % (10/02/15 4:46 PM) Problem List Condition Effective Dates Status Health Status Informant At risk of pressure Active sore(Confirmed) Hodgkins Active disease(Confirmed) Hypothyroidism(Confi Active patient rmed) Ovarian Active cancer(Confirmed) Tissue perfusion Active alteration(Confirmed )1 1Problem added automatically by system based on [...] Daily, # 90 tabs, 1 Refill(s), Pharmacy: [facility] , 1 tabs Oral Daily Start Date: [...] to 1 oldest [Reference Range]: WBC [4.8-10.8 6.7 10*3/uL 10*3/uL] (10/02/15 3:17 PM) RBC [4.00-5.20] 3.64 *LOW* (10/02/15 3:17 PM) Hgb [12.0-16.0 10.2 gm/dL gm/dL] *LOW* (10/02/15 3:17 PM) Hct [37.0-47.0 %] 34.0 % *LOW* (10/02/15 3:17 PM) MCV [82.0-99.0 fL] 93.4 fL (10/02/15 3:17 PM) MCH [27.0-32.0 pg] 28.0 pg (10/02/15 3:17 PM) MCHC [32.0-36.0 30.0 gm/dL gm/dL] *LOW* (10/02/15 3:17 PM) RDW [11.5-14.5 %] 19.6 % *HI* (10/02/15 3:17 PM) Platelet [150-400 413 10*3/uL 10*3/uL] *HI* (10/02/15 3:17 PM) MPV [9.4-12.4 fL] 9.2 fL *LOW* (10/02/15 3:17 PM) Blood Bank Results Most recent to 1 oldest [Reference Range]: ABO/Rh O POS (10/02/15 3:17 PM) Antibody Screen Tube NEG (10/02/15 3:17 PM) Immunizations No data available for this [...] Visit Note Author: Zeke Whitney MD Date: 10/02/15 Assessment/Plan Ordered: Physical Therapy Evaluation and Treatment Inpatient Transport Request Transport Request 1- nonrheumaticsymptomatic critical aortic valve stenosisconsistent with NYHA class III. Without the patient is 75 vtoggy5 years oldshe is high- risk candidate for open heart surgery with her previous chest radiation for Hodgkin disease. She better she would be better served with TAVR. 2- coronary artery disease with mild aneurysmin the mid LAD and mild to moderate at most moderate mid LAD disease. Medical treatment and aggressive risk factor modificationfrom that issue. 3- hypertension essential well controlled I had a long discussion regarding her optionincluding surgical aortic valve replacement versus TAVR. Risk, benefits,and alternative were all explained to the patient her family. They want to proceed with aortic valve plasty as a bridge for TAVR proceed with TAVR adenopathy surgical valve replacement. Risks, benefits and alternatives explained in detail to the patient and family. These includes, but not limited, to dying, stroke (major and minor), bleeding ( major or minor) requiring blood transfusion or vascular surgery, vascular injury ,acute kidney injury and need for skilled nursing dialysis, permanent pacemaker needs, emergent open heart surgery, acute limb ischemia, coronary occlusion and acute heart attack, and cardiac rupture and tamponade. They verbalized understanding and wish to proceed with the procedure.
--- OUTSIDE RECORDS SUMMARY | 2016-08-28 15:26 | XMS REPORT | CCD ---
Author Author JAZMÍN [facility]ARRAN[facility] Organization Unknown Address [address] [place], [place] [address] Phone 0 Care Team Providers Care Inspector Machined Parts Name Role Phone PETER LAWSON Attending Physician [phone] Vital Signs Unknown or Not Available. Allergies Allergy Code Allergy Type Reaction Status SULFA (sulfonamide) 0 Drug allergy Active BACTRIM 288663 Drug allergy Active Procedures Unknown or Not Available. History of Immunizations Immunization Code Date Influenza, seasonal, injectable 141 02/22 Problems Unknown or Not Available. Results COMP METABOLIC - Collect Date/Time: 06/08/2015 14:19 Test Name Code Test Result Test Units Test Ref Range GLUCOSE 114 mg/dL L=70 H=110 BUN 23 mg/dL L=7 H=18 CREATININE 1.10 mg/ dL L=0.60 H=1.30 AGE 74 YEARS GFR 51.5 SODIUM 139 mmol/L L=136 H=145 POTASSIUM 3.9 mmol/ L L=3.5 H=5.1 CHLORIDE 105 mmol/L L=98 H=107 CO2 24 mmol/L L=21 H=32 CALCIUM 9.1 mg/dL L=8.5 H=10.1 AST 19 U/L L=15 H=37 ALT 16 U/L L=12 H=78 ALKALINE PHOS 62 U/ L L=50 H=136 TOTAL PROTEIN 6.6 g/ dL L=6.4 H=8.2 ALBUMIN 3.4 g/dL L=3.4 H=5.0 TOTAL BILI 0.90 mg/ dL L=0.00 H=1.00 THYROXINE (T4) FREE - Collect Date/Time: 06/08/2015 14:19 Test Name Code Test Result Test Units Test Ref Range FT4 1.40 ng/dL L=0.76 H=1.46 TSH - Collect Date/Time: 06/08/2015 14:19 Test Name Code Test Result Test Units Test Ref Range TSH 0.08 uIU/mL L=0.36 H=3.74 CBC W/ DIFF - Collect Date/Time: 06/08/2015 14:19 Test Name Code Test Result Test Units Test Ref Range WBC 9.0 x10^3 L=4.8 H=10.8 RBC 3.01 x10^6 L=4.20 H=5.40 HEMOGLOBIN 9.1 g/dL L=12.0 H=16.0 HEMATOCRIT 27.8 % L=37.0 H=47.0 MCV 92 fL L=80 H=100 MCH 30.1 pg L=27.0 H=33.0 MCHC 32.6 g/dL L=33.0 H=37.0 RDW 20.0 % L=11.5 H=14.5 PLATELETS 427 x10^3 L=150 H=450 MPV 6.5 fL L=7.8 H=11.0 NEUTROPHILS 90.5 % L=40.0 H=80.0 LYMPHOCYTES 5.3 % L=20.0 H=45.0 MONOCYTES 2.8 % L=0.0 H=10.0 EOSINOPHILS 0.3 % L=0.0 H=5.0 BASOPHILS 1.1 % L=0.0 H=2.0 SEG 84 %% L=40 H=80 BAND 3 %% L=0 H=5 LYMPH 10 %% L=20 H=45 MONO 2 %% L=0 H=10 EOS 0 %% L=0 H=5 BASO 1 %% L=0 H=2 ATYP LYMPH 0 %% L=0 H=10 META 0 %% L=0 H=1 REFLEX MAN DIFF YES N/A RBC MORPHOLOGY SEE BELOW N/A ANISO 2+ N/A NORMAL: NONE SEEN POIK 2+ N/A NORMAL: NONE SEEN OVALOCYTES 1+ N/A NORMAL: NONE SEEN TEARDROP SLIGHT N/A NORMAL: NONE SEEN HYPO 1+ N/A NORMAL: NONE SEEN MICRO SLIGHT N/A NORMAL: NONE SEEN MACRO 1+ N/A NORMAL: NONE SEEN POLY NONE SEEN N/A NORMAL: NONE SEEN TOXIC GRAN NONE SEEN N/A NORMAL: NONE SEEN NUCLEATED RBC NONE SEEN N/A NORMAL: NONE SEEN Active Medications Medication Code Dose Units Frequency Route Modification Start Date/Time Calcium 500 + D 500MG-125IU Oral Tablet [id number] 1 EACH TWICE A DAY ORAL 03/16/2012 09:45 Prescription Detail 1 EACH ORAL TWICE A DAY Aspirin 81MG Oral Tablet [id number] 81 MILLIGRAMS DAILY ORAL 03/16/2012 09:45 Prescription Detail 81 MILLIGRAMS ORAL DAILY Medications Administered During Visit Unknown or Not Available. Encounters Encounter Diagnosis Diagnosis Code Start Date Hodgkin lymphoma, unspecified, unspecified site C8190 06/08/2015 Social History Smoking Status Code Start Date End Date Never smoker [id number] Patient Decision Aids Unknown or Not Available. Discharge Instructions You were admitted to [facility] on 06/08/2015 with a principal diagnosis of Hodgkin lymphoma, unspecified, unspecified site. You were discharged from [facility] on 06/08/2015. Should you have any questions prior to discharge, please contact a member of your healthcare team. If you have left the hospital and have any questions, please contact your primary care physician. Chief Complaint and Reason For Visit Unknown or Not Available. Function Status Unknown or Not Available. Plan of Care Unknown or Not Available. Referral/Transition of Care Unknown or Not Available.
--- OUTSIDE RECORDS SUMMARY | 2016-08-28 15:27 | XMS REPORT | CCD ---
Author Author [facility]MÍN [facility]ARR[facility] Organization Unknown Address [address] [place], [place] [address] Phone 0 Care Team Providers Care Bin Filler Name Role Phone PETER LAWSON Attending Physician [phone] Vital Signs Unknown or Not Available. Allergies Allergy Code Allergy Type Reaction Status SULFA (sulfonamide) 0 Drug allergy Active BACTRIM 384883 Drug allergy Active Procedures Unknown or Not Available. History of Immunizations Immunization Code Date Influenza, seasonal, injectable 141 02/22 Problems Unknown or Not Available. Results CULTURE URINE - Collect Date/Time: 12/03/2015 14:20 Test Name Code Test Result Test Units Test Ref Range SPEC SOURCE: RANDOM N/A Urine Culture, Routine 630-4 Final report N/A Result 1 630-4 Enterobacter cloacae N/A Active Medications Medication Code Dose Units Frequency Route Modification Start Date/Time Aspirin 81MG Oral Tablet [id number] 81 MILLIGRAMS DAILY ORAL 03/16/2012 09:45 Prescription Detail 81 MILLIGRAMS ORAL DAILY Medications Administered During Visit Unknown or Not Available. Encounters Encounter Diagnosis Diagnosis Code Start Date Urinary tract infection, site not specified N390 12/03/2015 Social History Smoking Status Code Start Date End Date Never smoker [id number] Patient Decision Aids Unknown or Not Available. Discharge Instructions You were admitted to [facility] on 12/03/2015 14:24 with a principal diagnosis of Urinary tract infection, site not specified You had the following tests done: CULTURE URINE You were discharged from [facility] on 12/03/2015 14:24 Should you have any questions prior to [...]
--- OUTSIDE RECORDS SUMMARY | 2016-08-28 15:27 | XMS REPORT | Summary of Care ---
Author Author Juancarlos Ardon M.D. Organization Unknown Address Unknown Phone Unavailable Care Team Providers Care Credit Union Examiner Name Role Phone Juancarlos Ardon M.D. Unavailable Unavailable Outside, Physician Unavailable Unavailable Unavailable Unavailable Functional Status Name Dates Details Functional status health issues are not documented Status: Name Dates Details Cognitive status health issues are not documented Status: Problems Name Dates Details Active medical history not documented Status: Medications Name Dates Details Aspir-81 81 MG Oral Tablet Delayed Release Juancarlos Ardon M.D. * Start 23-Jun-2016 Active Furosemide 40 MG Oral Tablet * Refills: 0 Juancarlos Ardon M.D. * Start 23-Jun-2016 Active Levothyroxine Sodium 75 MCG Oral Tablet * Refills: 0 Juancarlos Ardon M.D. * Start 23-Jun-2016 Active Allergies and Adverse Reactions Name Dates Details Sulfa Drugs (Allergy) Status: Active Procedures Procedure Dates Details History of Thyroid Surgery History of Hysterectomy History of Cholecystectomy Procedures not documented Immunization Name Dates Details Immunizations not documented Family History Name Dates Details No pertinent family history Status: Active Name Dates Details No pertinent family history Status: Active Social History Name Dates Details - Status: Name Dates Details Never smoker Vital Signs Date Test Result Details 23-Jun-2016 14:03 Temperature 98.1 f Status: Comments: Method: Heart Rate 96 /min Status: Comments: Location: ; Height 62 in Status: Weight 133 lb Status: Physical Findings 99 Status: Comments: O2 Saturation Body Mass Index Calculated 24.33 kg/m2 Status: Body Surface Area Calculated 1.61 m2 Status: Results Date Description Value Details Results not documented Plan of Care Name Dates Details Planned Observations Planned Goals not documented Planned Encounters Appointment; Provider: Juancarlos Ardon M.D. On 15-Jul-2016 11:00 Instructions Name Dates Details Instructions not documented Encounters Appointment; Juancarlos Ardon M.D. Encounter Diagnosis: Problem not documented On 23-Jun-2016 12:00
--- OUTSIDE RECORDS SUMMARY | 2016-08-28 15:27 | XMS REPORT | Referral Summary ---
Author Author [facility] Organization [facility] Address Unknown Phone Unavailable Care Team Providers Care Fare Collector Name Role Phone Yamile Dallas Primary Care Physician [phone] Encounter VC Date(s): 12/11/15 - 12/11/15 [facility] [address] [place] [address] Discharge Disposition: 01-Home or Self Care Attending Physician: Zeke Whitney MD Admitting Physician: Zeke Whitney MD Vital Signs Most recent to 1 oldest [Reference Range]: Temperature Skin 36.3 degC [36-37 degC] (12/11/15 8:10 AM) Temperature Temporal 36.2 degC Artery [36.3-37.8 *LOW* degC] (12/11/15 2:04 PM) Peripheral Pulse 64 bpm Rate [60-100 bpm] (12/11/15 4:40 PM) Heart Rate Monitored 62 bpm [60-100 bpm] (12/11/15 11:23 AM) Respiratory Rate 18 br/min [14-20 br/min] (12/11/15 4:40 PM) Blood Pressure 136/76 mmHg [90-140/60-90 mmHg] (12/11/15 4:40 PM) SpO2 97 % (12/11/15 4:40 PM) Remote Telemetry Discontinued (12/11/15 4:40 PM) Problem List Condition Effective Dates Status [...] Daily, # 90 tabs, 1 Refill(s), Pharmacy: [facility] , 1 tabs Oral Daily Start [...] [Reference Range]: WBC [4.8-10.8 6.4 10*3/uL 10*3/uL] (12/11/15 8:56 AM) RBC [4.00-5.20] 3.50 *LOW* (12/11/15 8:56 AM) Hgb [12.0-16.0 9.9 gm/dL gm/dL] *LOW* (12/11/15 8:56 AM) Hct [37.0-47.0 %] 31.2 % *LOW* (12/11/15 8:56 AM) MCV [82.0-99.0 fL] 89.1 fL (12/11/15 8:56 AM) MCH [27.0-32.0 pg] 28.3 pg (12/11/15 8:56 AM) MCHC [32.0-36.0 31.7 gm/dL gm/dL] *LOW* (12/11/15 8:56 AM) RDW [11.5-14.5 %] 17.2 % *HI* (12/11/15 8:56 AM) Platelet [150-400 203 10*3/uL 10*3/uL] (12/11/15 8:56 AM) MPV [9.4-12.4 fL] 9.6 fL (12/11/15 8:56 AM) Immature 0.0 % Granulocytes (12/11/15 8:56 AM) [0.0-1.0 %] Neutrophils [51-75 78 % %] *HI* (12/11/15 8:56 AM) Lymphocytes [20-46 11 % %] *LOW* (12/11/15 8:56 AM) Monocytes [4-11 %] 7 % (12/11/15 8:56 AM) Eosinophils [0-4 %] 4 % (12/11/15 8:56 AM) Basophils [0-2 %] 1 % (12/11/15 8:56 AM) Neutro Absolute 4.92 10*3 [1.90-7.00 10*3] (12/11/15 8:56 AM) Lymph Absolute 0.72 10*3 [0.80-3.30 10*3] *LOW* (12/11/15 8:56 AM) [place] Absolute 0.46 10*3 [0.30-1.00 10*3] (12/11/15 8:56 AM) Eos Absolute 0.22 10*3 [0.00-0.50 10*3] (12/11/15 8:56 AM) Baso Absolute 0.03 10*3 [0.00-0.20 10*3] (12/11/15 8:56 AM) Nucleated RBC 0.0 /100 WBC Automated [0 /100 (12/11/15 8:56 AM) WBC] Chemistry Most recent to 1 oldest [Reference Range]: Sodium Lvl [136-144 136 mEq/L mEq/L] (12/11/15 8:56 AM) Potassium Lvl 4.0 mEq/L [3.6-5.1 mEq/L] (12/11/15 8:56 AM) Chloride [99-109 107 mEq/L mEq/L] (12/11/15 8:56 AM) CO2 [22-32 mEq/L] 24 mEq/L (12/11/15 8:56 AM) AGAP [3-20] 5 (12/11/15 8:56 AM) BUN [4-20 mg/dL] 15 mg/dL (12/11/15 8:56 AM) Glucose Lvl [70-100 95 mg/dL mg/dL] (12/11/15 8:56 AM) Creatinine Lvl 0.82 mg/dL [0.44-1.03 mg/dL] (12/11/15 8:56 AM) eGFR [>60] >60 1 (12/11/15 8:56 AM) Calcium Lvl 8.9 mg/dL [8.6-10.0 mg/dL] (12/11/15 8:56 AM) Albumin Lvl [3.5-4.8 3.4 gm/dL gm/dL] *LOW* (12/11/15 8:56 AM) BNP [0-99 pg/mL] 78 pg/mL (12/11/15 8:56 AM) Troponin [<0.06 <0.05 ng/mL ng/mL] (12/11/15 8:56 AM) 1Result Comment: Multiply eGFR results by 1.21 for race. Immunizations No data available for this section [...] Visit Note Author: Zeke Whitney MD Date: 12/11/15 Assessment/Plan Ordered: CTA Chest Transport Request Transport Request NonrheumaticValvular Heart Disease - symptomatic critical aortic valve stenosisconsistent with NYHA class III. - s/p BAV on 10-06-2015 - s/p 25mm PORTICO TAVR using right percutaneous TransFemoral [id number]: ASA/Plavix - doing well. NYHA class I-II. Echo with very good results Coronary artery disease - mild aneurysmin the mid LAD and mild to moderate at most moderate mid LAD disease - ASA/plavix Essential Hypertension - well controlled Hypothyroidism - continue replacement
--- OUTSIDE RECORDS SUMMARY | 2016-08-28 15:27 | XMS REPORT | Summary of Care ---
Author Author Juancarlos Ardon M.D. Organization Unknown Address Unknown Phone Unavailable Care Team Providers Care Tank Setter Helper Name Role Phone Juancarlos Ardon M.D. Unavailable Unavailable Outside, Physician Unavailable Unavailable Unavailable Unavailable Functional Status Name Dates Details Functional status health issues are not documented Status: Name Dates Details Cognitive status health issues are not documented Status: Problems Name Dates Details Epistaxis (784.7, R04.0) Status: Active Medications Name Dates Details Aspir-81 81 MG [...]
--- OUTSIDE RECORDS SUMMARY | 2016-08-28 15:27 | XMS REPORT | Referral Summary ---
Author Author [facility] Organization [facility] Address Unknown Phone Unavailable Care Team Providers Care Urgent Care Physician Assistant Name Role Phone Yamile Dallas Primary Care Physician [phone] Encounter VC Date(s): 11/07/15 - 11/09/15 [facility] [address] [place] [address] [phone] Discharge Disposition: 06-Home with Home Health Care Attending Physician: Zeke Whitney MD Admitting Physician: Zeke Whitney MD Vital Signs Most recent to 1 oldest [Reference Range]: Temperature Skin 37.4 degC [36-37 degC] *HI* (11/06/15 3:48 PM) Temperature Temporal 36.6 degC Artery [36.3-37.8 (11/09/15 12:00 PM) degC] Peripheral Pulse 101 bpm Rate [60-100 bpm] *HI* (11/08/15 9:52 AM) Peripheral Pulse 95 bpm Rate with Activity (11/08/15 9:52 AM) Heart Rate Monitored 89 bpm [60-100 bpm] (11/09/15 3:00 PM) Respiratory Rate 18 br/min [14-20 br/min] (11/09/15 3:00 PM) Blood Pressure 141/58 mmHg [90-140/60-90 mmHg] *HI* (11/09/15 3:00 PM) Systolic Blood 134 mmHg Pressure with (11/08/15 9:52 AM) Activity Diastolic Blood 62 mmHg Pressure with (11/08/15 9:52 AM) Activity Mean Arterial 83 mmHg Pressure, Cuff (11/09/15 3:00 PM) Blood Pressure 108/47 mmHg Invasive (11/07/15 2:15 PM) [90-140/60-90 mmHg] Mean Arterial 297 mmHg Pressure, Invasive (11/07/15 3:00 PM) SpO2 95 % (11/09/15 3:00 PM) Problem List Condition Effective Dates Status [...] Daily, # 90 tabs, 1 Refill(s), Pharmacy: [facility] , 1 tabs Oral Daily Start [...] Refill(s) Start Date: 10/19/14 Status: Ordered Results Blood Gases Most recent to 1 oldest [Reference Range]: pH [7.35-7.45] 7.41 (11/07/15 10:17 AM) pCO2 Art [35-45 38 mmHg mmHg] (11/07/15 10:17 AM) Bicarbonate [22-26 24 mEq/L mEq/L] (11/07/15 10:17 AM) Base Excess Art -1 [0-2] *LOW* (11/07/15 10:17 AM) O2 Sat Art 99.2 % [90.0-97.0 %] *HI* (11/07/15 10:17 AM) pO2 Art [80-100 146 mmHg mmHg] *HI* (11/07/15 10:17 AM) O2 Panel Spont.Vent Mode (11/07/15 10:17 AM) FiO2 Art [0-100] 40 (11/07/15 10:17 AM) PEEP 5.0 (11/07/15 10:17 AM) Tubing Compensation 100 % (11/07/15 10:17 AM) Spec Site A-Line (11/07/15 10:17 AM) Hematology Most recent to 1 oldest [Reference Range]: WBC [4.8-10.8 6.6 10*3/uL 10*3/uL] (11/09/15 3:45 AM) RBC [4.00-5.20] 3.04 *LOW* (11/09/15 3:45 AM) Hgb [12.0-16.0 8.6 gm/dL gm/dL] *LOW* (11/09/15 3:45 AM) Hct [37.0-47.0 %] 27.7 % *LOW* (11/09/15 3:45 AM) MCV [82.0-99.0 fL] 91.1 fL (11/09/15 3:45 AM) MCH [27.0-32.0 pg] 28.3 pg (11/09/15 3:45 AM) MCHC [32.0-36.0 31.0 gm/dL gm/dL] *LOW* (11/09/15 3:45 AM) RDW [11.5-14.5 %] 18.5 % *HI* (11/09/15 3:45 AM) Platelet [150-400 143 10*3/uL 10*3/uL] *LOW* (11/09/15 3:45 AM) MPV [9.4-12.4 fL] 10.2 fL (11/09/15 3:45 AM) Coagulation Most recent to 1 oldest [Reference Range]: INR [0.9-1.2] 1.5 *HI* (11/07/15 8:42 AM) PTT [25.0-35.0 305.0 seconds 1 seconds] *HHI* (11/07/15 10:45 AM) ACT [100-146 153 seconds seconds] *HI* (11/07/15 12:16 PM) 1Result Comment: Critical value called, and read-back verified. Called to Nessa Watts RN 11/07/2015 12:24 Chemistry Most recent to 1 oldest [Reference Range]: Sodium Lvl [136-144 136 mEq/L mEq/L] (11/09/15 3:45 AM) Potassium Lvl 4.0 mEq/L [3.6-5.1 mEq/L] (11/09/15 3:45 AM) Chloride [99-109 105 mEq/L mEq/L] (11/09/15 3:45 AM) CO2 [22-32 mEq/L] 27 mEq/L (11/09/15 3:45 AM) AGAP [3-20] 4 (11/09/15 3:45 AM) BUN [4-20 mg/dL] 11 mg/dL (11/09/15 3:45 AM) Glucose Lvl [70-100 93 mg/dL mg/dL] (11/09/15 3:45 AM) Creatinine Lvl 0.69 mg/dL [0.44-1.03 mg/dL] (11/09/15 3:45 AM) eGFR [>60] >60 1 (11/09/15 3:45 AM) Calcium Lvl 8.4 mg/dL [8.6-10.0 mg/dL] *LOW* (11/09/15 3:45 AM) Magnesium Lvl 1.8 mg/dL [1.8-2.5 mg/dL] (11/08/15 3:52 AM) Troponin [<0.06 0.27 ng/mL 2 ng/mL] *HHI* (11/09/15 6:51 AM) Activated Clotting 503 seconds Time NPT [100-146 *HI* seconds] (11/07/15 7:21 AM) Blood Glucose, 120 mg/dL Capillary [70-100 *HI* mg/dL] (11/07/15 8:46 AM) Chol [0-200 mg/dL] 124 mg/dL (11/08/15 3:52 AM) Trig [0-150 mg/dL] 71 mg/dL (11/08/15 3:52 AM) HDL [>40 mg/dL] 36 mg/dL *ABN* (11/08/15 3:52 AM) LDL [0-100 mg/dL] 74 mg/dL (11/08/15 3:52 AM) VLDL Cholesterol 14 mg/dL [0-30 mg/dL] (11/08/15 3:52 AM) Cardiac Risk 3.4 [0.0-5.0] (11/08/15 3:52 AM) 1Result Comment: Multiply eGFR results by 1.21 for race. 2Result Comment: Critical value called, and read-back verified. Called to Mai Dillon RN 07:46 11/09/2015 Blood Bank Results Most recent to 1 oldest [Reference Range]: ABO/Rh O POS (11/07/15 5:46 AM) Antibody Screen Tube NEG (11/07/15 5:46 AM) Immunizations No data available for this section Procedures Procedure Date Related Diagnosis Body Site Replacement Aortic Valve Transcatheter 11/07/15 Transfemoral Approach1 Catheterization Right Heart (Left, Groin)2 10/02/15 Valvuloplasty (Left, Groin)3 10/02/15 Cholecystectomy 2010 Hysterectomy 1989 Appendectomy PORT A CATH 1auto-populated from documented surgical case 2auto-populated from documented surgical case 3auto-populated from documented surgical case Social History Social History Type Response Smoking Status Never smoker Assessment and Plan No data available for this section
--- OUTSIDE RECORDS SUMMARY | 2016-08-28 15:27 | XMS REPORT | Referral Summary ---
Author Author [facility] Organization [facility] Address Unknown Phone Unavailable Care Team Providers Care Sole Buffer Name Role Phone Yamile Dallas Primary Care Physician [phone] Encounter VC Date(s): 10/02/15 - 10/04/15 [facility] [address] [place] [address] Discharge Disposition: -Home or Self Care Attending Physician: Zeke Whitney MD Admitting Physician: Zeke Whitney MD Referring Physician: Violette Guzman MD Vital Signs Most recent to 1 oldest [Reference Range]: Temperature Temporal 36.7 degC Artery [36.3-37.8 (10/04/15 8:00 AM) degC] Peripheral Pulse 74 bpm Rate [60-100 bpm] (10/02/15 5:10 PM) Heart Rate Monitored 81 bpm [60-100 bpm] (10/04/15 3:00 PM) Respiratory Rate 26 br/min [14-20 br/min] *HI* (10/04/15 10:00 AM) Blood Pressure 122/65 mmHg [90-140/60-90 mmHg] (10/04/15 3:00 PM) Mean Arterial 79 mmHg Pressure, Cuff (10/04/15 3:00 PM) SpO2 95 % (10/04/15 12:00 PM) Remote Telemetry Ongoing (10/02/15 2:55 PM) Problem List Condition Effective Dates Status [...] Daily, # 90 tabs, 1 Refill(s), Pharmacy: [facility] , 1 tabs Oral Daily Start [...] to 1 oldest [Reference Range]: WBC [4.8-10.8 6.1 10*3/uL 10*3/uL] (10/04/15 3:58 AM) RBC [4.00-5.20] 3.15 *LOW* (10/04/15 3:58 AM) Hgb [12.0-16.0 8.9 gm/dL gm/dL] *LOW* (10/04/15 3:58 AM) Hct [37.0-47.0 %] 29.5 % *LOW* (10/04/15 3:58 AM) MCV [82.0-99.0 fL] 93.7 fL (10/04/15 3:58 AM) MCH [27.0-32.0 pg] 28.3 pg (10/04/15 3:58 AM) MCHC [32.0-36.0 30.2 gm/dL gm/dL] *LOW* (10/04/15 3:58 AM) RDW [11.5-14.5 %] 20.1 % *HI* (10/04/15 3:58 AM) Platelet [150-400 317 10*3/uL 10*3/uL] (10/04/15 3:58 AM) MPV [9.4-12.4 fL] 9.8 fL (10/04/15 3:58 AM) Coagulation Most recent to 1 oldest [Reference Range]: ACT [100-146 134 seconds seconds] (10/02/15 7:07 PM) Chemistry Most recent to 1 oldest [Reference Range]: Sodium Lvl [136-144 142 mEq/L mEq/L] (10/04/15 3:58 AM) Potassium Lvl 4.0 mEq/L [3.6-5.1 mEq/L] (10/04/15 3:58 AM) Chloride [99-109 110 mEq/L mEq/L] *HI* (10/04/15 3:58 AM) CO2 [22-32 mEq/L] 27 mEq/L (10/04/15 3:58 AM) AGAP [3-20] 5 (10/04/15 3:58 AM) BUN [4-20 mg/dL] 12 mg/dL (10/04/15 3:58 AM) Glucose Lvl [70-100 101 mg/dL mg/dL] *HI* (10/04/15 3:58 AM) Creatinine Lvl 0.69 mg/dL [0.44-1.03 mg/dL] (10/04/15 3:58 AM) eGFR [>60] >60 1 (10/04/15 3:58 AM) Calcium Lvl 8.5 mg/dL [8.6-10.0 mg/dL] *LOW* (10/04/15 3:58 AM) Magnesium Lvl 1.7 mg/dL [1.8-2.5 mg/dL] *LOW* (10/04/15 3:58 AM) Activated Clotting 202 seconds Time NPT [100-146 *HI* seconds] (10/02/15 4:42 PM) 1Result Comment: Multiply eGFR results by [...]
--- OUTSIDE RECORDS SUMMARY | 2016-08-28 15:27 | XMS REPORT | Referral Summary ---
Author Author [facility] Organization [facility] Address Unknown Phone Unavailable Care Team Providers Care Store Host Name Role Phone Kandis Hearn Primary Care Physician [phone] Encounter VC Date(s): 09/15/14 - 09/15/14 [facility] [address] [place] [address] LALI Valles [address] Discharge Diagnosis: Hypothyroidism Discharge Diagnosis: [...] Daily, # 90 tabs, 1 Refill(s), Pharmacy: [facility] , 1 tabs Oral Daily [...] hormone). This hormone tells the thyroid to return to service inspector more hormone. SYMPTOMS Lethargy (feeling as though [...] Released: 04/27/2006 Document Revised: 07/19/2012 Document Reviewed: [employer] Patient Information 2014 [employer]. Follow Up With: Where: When: Steve Hearn [address] [place] [address] Drive; Via [facility] [place] [address] [employer] ([employer] In 4 months 01/16/2015 Comments: Extracted from: Title: Office Visit Note Author: Steve Hearn MD Date: 09/15/14 Assessment/Plan H/O ovarian cancer She continues on chemotherapy. Ordered: Office Visit Level 4 Est 01421 Hypothyroidism TSH and free T4 levels will be obtained. Ordered: Free T4 Office Visit Level 4 Est 75966 TSH 3rd Generation Orthostatic hypotension She will continue to increase her fluid intake. Ordered: Office Visit Level 4 Est 15476 Orders: levothyroxine, 1 tabs, Oral, Daily, # 90 tabs, 1 Refill(s), Pharmacy: [facility], 1 tabs Oral Daily
--- OUTSIDE RECORDS SUMMARY | 2016-08-28 15:27 | XMS REPORT | Referral Summary ---
Author Author [facility] Organization [facility] Address Unknown Phone Unavailable Care Team Providers Care Horse Farm Manager Name Role Phone Kandis Hearn Primary Care Physician [phone] Encounter VC Date(s): 09/15/14 - 09/15/14 [facility] [address] [place] [address] LALI Valles [id number] Discharge Diagnosis: Hypothyroidism Discharge Diagnosis: H/O [...] Daily, # 90 tabs, 1 Refill(s), Pharmacy: [facility] , 1 tabs Oral Daily [...] hormone). This hormone tells the thyroid to steel turner more hormone. SYMPTOMS Lethargy (feeling as [...] Released: 04/27/2006 Document Revised: 07/19/2012 Document Reviewed: [employer] Patient Information 2014 [employer]. Follow Up With: Where: When: Steve Hearn [address] [place] [address] Drive; [place] [address] [employer] ([employer] In 4 months 01/16/2015 Comments: Extracted from: Title: Office Visit Note Author: Steve Hearn MD Date: 09/15/14 Assessment/Plan H/O ovarian cancer She continues on chemotherapy. Ordered: Office Visit Level 4 Est 57128 Hypothyroidism TSH and free T4 levels will be obtained. Ordered: Free T4 Office Visit Level 4 Est 65497 TSH 3rd Generation Orthostatic hypotension She will continue to increase her fluid intake. Ordered: Office Visit Level 4 Est 12584 Orders: levothyroxine, 1 tabs, Oral, Daily, # 90 tabs, 1 Refill(s), Pharmacy: [facility], 1 tabs Oral Daily
--- OUTSIDE RECORDS SUMMARY | 2016-08-28 15:27 | XMS REPORT | Referral Summary ---
Author Author [facility] Organization [facility] Address Unknown Phone Unavailable Care Team Providers Care Asset Protection Greeter Name Role Phone Kandis Hearn Primary Care Physician [phone] Encounter VC Date(s): 02/07/15 - 02/07/15 [facility] [address] [place] [address] LALI Valles [id number] Discharge Diagnosis: Sensation disturbance of skin [...] # 90 tabs, 1 Refill(s), Pharmacy: [facility] , 1 tabs Oral Daily Start [...] 10*3 [1.00-4.00 10*3] *LOW* (02/07/15 2:28 PM) [place] Absolute 0.63 10*3 [0.20-0.80 10*3] (02/07/15 2:28 [...] 07/19/2012 Document Reviewed: [employer] Patient Information 2015 [employer], [facility]. This information is not intended to replace advice given to you by your health care provider. Make sure you discuss any questions you have with your health care provider. Follow Up With: Where: When: Steve Hearn [address] [place] [address] Drive; [place] [address] [employer] (1) Within 3 to 5 days, only [...]
--- OUTSIDE RECORDS SUMMARY | 2016-08-28 15:27 | XMS REPORT | Referral Summary ---
Author Author [facility] Organization [facility] Address Unknown Phone Unavailable Care Team Providers Care Tire Buffer Name Role Phone Kandis Hearn Primary Care Physician [phone] Encounter VC Date(s): 10/04/14 - 10/04/14 [facility] [address] [place] [address] LALI Valles [id number] Discharge Diagnosis: Acute neck pain Discharge Diagnosis: Personal history of ovarian cancer Discharge Disposition: 01-Home or Self Care Attending Physician: Steve Hearn MD Admitting Physician: Steve Hearn MD Vital Signs Most recent to 1 oldest [Reference Range]: Temperature Tympanic 36.7 degC [36.6-38.1 degC] (10/04/14 2:33 PM) Peripheral Pulse 87 bpm Rate [60-100 bpm] (10/04/14 2:33 PM) Respiratory Rate 16 br/min [14-20 br/min] (10/04/14 2:33 PM) Blood Pressure 132/80 mmHg [90-140/60-90 mmHg] (10/04/14 2:33 PM) SpO2 97 % (10/04/14 2:33 PM) Problem List Condition Effective Dates Status [...] Daily, # 90 tabs, 1 Refill(s), Pharmacy: [facility] , 1 tabs Oral Daily Start [...] Author: Steve Hearn MD Date: Family Medicine Musculoskeletal Pain Musculoskeletal pain is muscle and kimberly aches and pains. These pains can occur in any part of the body. Your caregiver may treat you without knowing the cause of the pain. They may treat you if blood or urine tests, X-rays, and other tests were normal. CAUSES There is often not a definite cause or reason for these pains. These pains may be caused by a type of germ (virus ). The discomfort may also come from overuse. Overuse includes working out too hard when your body is not fit. Kimberly aches also come from weather changes. Bone is sensitive to atmospheric pressure changes. HOME CARE INSTRUCTIONS Ask when your test results will be ready. Make sure you get your test results. Only take okzs-[id number]-rvweynm or prescription medicines for pain, discomfort, or fever as directed by your caregiver. If you were given medications for your condition, do not drive, operate machinery or power tools, or sign legal documents for 24 hours. Do not drink alcohol. Do not take sleeping pills or other medications that may interfere with treatment. Continue all activities unless the activities cause more pain. When the pain lessens, slowly resume normal activities. Gradually increase the intensity and duration of the activities or exercise. During periods of severe pain, bed rest may be helpful. Lay or sit in any position that is comfortable. Putting ice on the injured area. Put ice in a bag. Place a towel between your skin and the bag. Leave the ice on for 15 to 20 minutes, 3 to 4 times a day. Follow up with your caregiver for continued problems and no reason can be found for the pain. If the pain becomes worse or does not go away, it may be necessary to repeat tests or do additional testing. Your caregiver may need to look further for a possible cause. SEEK IMMEDIATE MEDICAL CARE IF: You have pain that is getting worse and is not relieved by medications. You develop chest pain that is associated with shortness or breath, sweating, feeling sick to your stomach (nauseous ), or throw up (vomit ). Your pain becomes localized to the abdomen. You develop any new symptoms that seem different or that concern you. MAKE SURE YOU: Understand these instructions. Will watch your condition. Will get help right away if you are not doing well or get worse. Document Released: 04/27/2006 Document Revised: 07/19/2012 Document Reviewed: [facility] Patient Information 2014 [employer]. Follow Up With: Where: When: Steve Hearn [address] [place] [address] Drive; [place] [address] [employer] (1) Within 5 to 7 days, only if needed Comments: Extracted from: Title: Office Visit Note Author: Steve Hearn MD Date: 10/04/14 Assessment/Plan Acute neck pain X-rays of the cervical spine showed degenerative changes with some foraminal narrowing. She will be scheduled for MRI of the cervical spine. She will be placed on Myrtle 5 mg every 4 hours as needed for pain. Ordered: MRI Spine Cervical w/o Contrast Personal history of ovarian cancer She continues follow-up with her oncologist. Orders: HYDROcodone-acetaminophen, 1 tabs, Oral, q4hr, as needed for pain, X 7 days, # 42 tabs, 0 Refill(s)
--- OUTSIDE RECORDS SUMMARY | 2016-08-28 15:27 | XMS REPORT | Referral Summary ---
Author Author [facility] Organization [facility] Address Unknown Phone Unavailable Care Team Providers Care Bus Driver Supervisor Name Role Phone Yamile Dallas Primary Care Physician [phone] Encounter VC Date(s): 05/27/16 - 05/27/16 [facility] [address] [place] [address] Discharge Disposition: -Home or Self Care Attending Physician: Zeke Whitney MD Admitting Physician: Zeke Whitney MD Vital Signs Most recent to 1 oldest [Reference Range]: Temperature Skin 36.5 degC [36-37 degC] (05/27/16 7:58 AM) Temperature Temporal 36.4 degC Artery [36.3-37.8 (05/27/16 4:15 PM) degC] Peripheral Pulse 72 bpm Rate [60-100 bpm] (05/27/16 4:15 PM) Respiratory Rate 18 br/min [14-20 br/min] (05/27/16 4:15 PM) Blood Pressure 140/58 mmHg [90-140/60-90 mmHg] (05/27/16 4:15 PM) SpO2 98 % (05/27/16 4:15 PM) Problem List Condition Effective Dates Status [...] 0 Refill(s) Start Date: 05/19/14 Status: Ordered [facility] Medication See Instructions, CANCER MEDICATIONS, 0 Refill(s) [...] to 1 oldest [Reference Range]: WBC [4.8-10.8 11.7 10*3/uL 10*3/uL] *HI* (05/27/16 8:24 AM) RBC [4.00-5.20] 3.32 *LOW* (05/27/16 8:24 AM) Hgb [12.0-16.0 9.8 gm/dL gm/dL] *LOW* (05/27/16 8:24 AM) Hct [37.0-47.0 %] 31.1 % *LOW* (05/27/16 8:24 AM) MCV [82.0-99.0 fL] 93.7 fL (05/27/16 8:24 AM) MCH [27.0-32.0 pg] 29.5 pg (05/27/16 8:24 AM) MCHC [32.0-36.0 31.5 gm/dL gm/dL] *LOW* (05/27/16 8:24 AM) RDW [11.5-14.5 %] 17.6 % *HI* (05/27/16 8:24 AM) Platelet [150-400 224 10*3/uL 10*3/uL] (05/27/16 8:24 AM) MPV [9.4-12.4 fL] 11.8 fL (05/27/16 8:24 AM) Neutrophils [51-75 79 % %] *HI* (05/27/16 8:24 AM) Band Man [0-8 %] 12 % *HI* (05/27/16 8:24 AM) [place] Man [0-1 %] 6 % *HI* (05/27/16 8:24 AM) Myelo Man [-1-0 %] 2 % *HI* (05/27/16 8:24 AM) Lymphocytes [20-46 2 % %] *LOW* (05/27/16 8:24 AM) Monocytes [4-11 %] 0 % *LOW* (05/27/16 8:24 AM) Eosinophils [0-4 %] 0 % (05/27/16 8:24 AM) Basophils [0-2 %] 0 % (05/27/16 8:24 AM) Neutro Absolute 10.65 [1.90-7.00] *HI* (05/27/16 8:24 AM) Lymph Absolute 0.23 [0.80-3.30] *LOW* (05/27/16 8:24 AM) Pope Absolute 0.00 [0.30-1.00] *LOW* (05/27/16 8:24 AM) Eos Absolute 0.08 [0.00-0.50] (05/27/16 8:24 AM) Baso Absolute 0.03 [0.00-0.20] (05/27/16 8:24 AM) Toxic Gran Occasional *ABN* (05/27/16 8:24 AM) Dohle Bodies Occasional *ABN* (05/27/16 8:24 AM) Vacuoles Present *ABN* (05/27/16 8:24 AM) Nucleated RBC 0.0 /100 WBC Automated [0 /100 (05/27/16 8:24 AM) WBC] Differential Reviewed (05/27/16 8:24 AM) Chemistry Most recent to 1 oldest [Reference Range]: Sodium Lvl [136-144 139 mEq/L mEq/L] (05/27/16 9:52 AM) Potassium Lvl 4.1 mEq/L [3.6-5.1 mEq/L] (05/27/16 9:52 AM) Chloride [99-109 107 mEq/L mEq/L] (05/27/16 9:52 AM) CO2 [22-32 mEq/L] 28 mEq/L (05/27/16 9:52 AM) AGAP [3-20] 4 (05/27/16 9:52 AM) BUN [4-20 mg/dL] 17 mg/dL (05/27/16 9:52 AM) Glucose Lvl [70-100 89 mg/dL mg/dL] (05/27/16 9:52 AM) Creatinine Lvl 0.76 mg/dL [0.44-1.03 mg/dL] (05/27/16 9:52 AM) eGFR [>60] >60 1 (05/27/16 9:52 AM) Calcium Lvl 8.8 mg/dL [8.6-10.0 mg/dL] (05/27/16 9:52 AM) Albumin Lvl [3.5-4.8 3.2 gm/dL gm/dL] *LOW* (05/27/16 8:24 AM) BNP [0-99 pg/mL] 236 pg/mL *HI* (05/27/16 8:24 AM) Troponin [<0.06 <0.05 ng/mL ng/mL] (05/27/16 8:24 AM) 1Result Comment: Multiply eGFR results by [...] smoker Assessment and Plan Extracted from: Title: Appointment reminder Author: Ayleen Marcos RN Date: 05/26/16 Called patient to remind her of her follow up appointment tomorrow morning. Patient is planning to arrive in the morning for testing at 0700
--- OUTSIDE RECORDS SUMMARY | 2016-08-28 15:27 | XMS REPORT | Referral Summary ---
Author Author [facility] Organization [facility] Address Unknown Phone Unavailable Care Team Providers Care Bullard Operator Name Role Phone Kandis Hearn Primary Care Physician [phone] Encounter VC Date(s): 09/15/14 - 09/15/14 [facility] [address] [place] [address] LALI Valles [id number] Discharge Diagnosis: Hypothyroidism Discharge Diagnosis: H/O [...] Daily, # 90 tabs, 1 Refill(s), Pharmacy: [facility] , 1 tabs Oral Daily [...] hormone). This hormone tells the thyroid to glove turner and former more hormone. SYMPTOMS [...] Released: 04/27/2006 Document Revised: 07/19/2012 Document Reviewed: [employer] Patient Information 2014 [employer]. Follow Up With: Where: When: Steve Hearn [address] [place] [address] Drive; Via [facility] [place] [address] [employer] ([employer] In 4 months 01/16/2015 Comments: Extracted from: Title: Office Visit Note Author: Steve Hearn MD Date: 09/15/14 Assessment/Plan H/O ovarian cancer She continues on chemotherapy. Ordered: Office Visit Level 4 Est 95744 Hypothyroidism TSH and free T4 levels will be obtained. Ordered: Free T4 Office Visit Level 4 Est 18688 TSH 3rd Generation Orthostatic hypotension She will continue to increase her fluid intake. Ordered: Office Visit Level 4 Est 22197 Orders: levothyroxine, 1 tabs, Oral, Daily, # 90 tabs, 1 Refill(s), Pharmacy: [facility], 1 tabs Oral Daily
--- OUTSIDE RECORDS SUMMARY | 2016-08-28 15:27 | XMS REPORT | CCD ---
Author Author JAZMÍN CARRANZA Organization Unknown Address [address], [place] [id number] Phone 0 Care Team Providers Care Workers' Compensation Hearings Officer Name Role Phone ALBAN KEVIN Attending Physician [phone] ALBAN KEVIN Primary Surgeon [phone] Vital Signs Vital Sign Value Unit Date/Time Recent/Initial? Weight Measured 132 lbs 12/02/2015 10:22 Initial VS Height 61 in 2015 10:22 Initial VS BMI (Body Mass Index) 24.94 kg/m^2 12/02/2015 10:22 Initial VS BSA (Body Surface Area) 1.61 m^2 12/02/2015 10:22 Initial VS Allergies Allergy Code Allergy Type Reaction Status SULFA (sulfonamide) 0 Drug allergy Active BACTRIM 773350 Drug allergy Active Procedures Unknown or Not Available. History of Immunizations Immunization Code Date Influenza, seasonal, injectable 141 02/22 Problems Unknown or Not Available. Results COMP METABOLIC - Collect Date/Time: 12/02/2015 10:20 Test Name Code Test Result Test Units Test Ref Range GLUCOSE 88 mg/dL L=70 H=110 BUN 17 mg/dL L=7 H=18 CREATININE 0.84 mg/ dL L=0.60 H=1.30 AGE 75 YEARS GFR 65.9 SODIUM 140 mmol/L L=136 H=145 POTASSIUM 4.3 mmol/ L L=3.5 H=5.1 CHLORIDE 103 mmol/L L=98 H=107 CO2 27 mmol/L L=21 H=32 CALCIUM 9.0 mg/dL L=8.5 H=10.1 AST 21 U/L L=15 H=37 ALT 22 U/L L=12 H=78 ALKALINE PHOS 62 U/ L L=50 H=136 TOTAL PROTEIN 7.1 g/ dL L=6.4 H=8.2 ALBUMIN 3.3 g/dL L=3.4 H=5.0 TOTAL BILI 0.50 mg/ dL L=0.00 H=1.00 PRO B-TYPE NATRIURETIC PEPTIDE - Collect Date/Time: 12/02/2015 10:20 Test Name Code Test Result Test Units Test Ref Range PBNP 170 pg/mL L=0 H=450 SED RATE AUTO - Collect Date/Time: 12/02/2015 10:20 Test Name Code Test Result Test Units Test Ref Range SED RATE 37 mm/HR L=0 H=15 Active Medications Unknown or Not Available. Medications Administered During Visit Unknown or Not Available. Encounters Encounter Diagnosis Diagnosis Code Start Date Polyneuropathy, unspecified G629 2015 Social History Smoking Status Code Start Date End Date Never smoker [id number] Patient Decision Aids Unknown or Not Available. Discharge Instructions You were admitted to [facility] on 12/02/2015 09:53 with a principal diagnosis of Polyneuropathy, unspecified You had the following tests done: COMP METABOLIC PRO B-TYPE NATRIURETIC PEPTIDE SED RATE AUTO You were discharged from [facility] on 12/02/2015 11:25 Should you have any questions prior to discharge, please contact a member of your healthcare team. If you have left the hospital and have any questions, please contact your primary care physician. Chief Complaint and Reason For Visit Chief Complaint Date of Onset LEFT LEG NUMBNESS Function Status Unknown or Not Available. Plan of Care Unknown or Not Available. Referral/Transition of Care Unknown or Not Available.
--- OUTSIDE RECORDS SUMMARY | 2016-08-28 15:27 | XMS REPORT | CCD ---
Author Author [facility] Organization Unknown Address [address], [place] [id number] Phone 0 Care Team Providers Care Drop Forger Helper Name Role Phone RONAN SOLO Attending Physician 0 ЕЛЕНА ELLISON Rounding Physician 0 Vital Signs Unknown or Not Available. Allergies Allergy Code Allergy Type Reaction Status SULFA (sulfonamide) 0 Drug allergy Active BACTRIM 613251 Drug allergy Active Procedures Unknown or Not Available. History of Immunizations Immunization Code Date Influenza, seasonal, injectable 141 02/22 Problems Unknown or Not Available. Results Unknown or Not Available. Active Medications Medication Code Dose Units Frequency Route Modification Start Date/Time Calcium 500 + D 500MG-125IU Oral Tablet 8408972 1 EACH TWICE A DAY ORAL 03/16/2012 09:45 Aspirin 81MG Oral Tablet [id number] 81 MILLIGRAMS DAILY ORAL 03/16/2012 09:45 Medications Administered During Visit Unknown or Not Available. Encounters Encounter Diagnosis Diagnosis Code Start Date OTH SCREEN MAMMO FOR MAL NEOPLASM V7612 04/24/2014 Social History Smoking Status Code Start Date End Date Never smoker [id number] Patient Decision Aids Unknown or Not Available. Discharge Instructions You were admitted to [facility] on 04/24/2014 with a principal diagnosis of OTH SCREEN MAMMO FOR MAL NEOPLASM. You were discharged from [facility]NOTE 3] on 04/24/2014. Should you have any questions prior to [...]
--- NOTE | 2016-08-28 15:37 | NUR ---
ADMISSION PT CAME PER WHEELCHAIR FROM [facility]CER CENTER. PT HAS A PORT A CATH ACCESSED. PT IS ON RA. PT DENIED SOA. PT IS ALERT AND ORIENTED X3.
[2016-08-28 15:52] VITALS: BP 174/82; PULSE 93; RESP 18; TEMP 96.5
[2016-08-28 15:53] VITALS: Ht 157.5 cm; Wt 61.2 kg
[2016-08-28] MEDS ORDERED: ONDANSETRON 4mg/2ml INJECTION IV PRN (16:45)
--- NOTE | 2016-08-28 16:48 | HPPDOC ---
ANSELMO FINE V PROPERTY STAFF ACCOUNTANT 08/28/16 1625: HPI - Adult Date DATE: 08/28/16 TIME: 16:14 General Chief Complaint: Ovarian cancer, epistaxis History of Present Illness Patient is a pleasant 76-year-old female who is currently under the treatment of Dr. Guzman for relapsed ovarian cancer. She started this round of chemotherapy (Taxol) on 05/15/16 and has been tolerating this well. Chemotherapy was placed on hold for scheduled right endarterectomy on 07/16/16. She tolerated this without any complications. Prior to surgery she did have one episode of epistaxis at which time she was seen by Dr. Juancarlos Islas (ENT). She was found to have a nasal septum perforation. He recommended moisturizing with saline spray and ointment. She has had no further complications. He awoke and had a brief nosebleed lasted less than 5 minutes. She was seen this for Taxol treatment at the clinic and was reported to be orthostatic. She was given 1 liter of IV fluids however continued to feel fatigued. The hospitalist services were contacted and accepted patient for outpatient admission for further evaluation and treatment. There is concern for GI bleeding as a side effect. Hemoglobin was checked as an outpatient this morning and was found to be 9.8. White count was 4.4, hematocrit 31.5, platelet count 199. Blood pressure on arrival to [facility] this afternoon was 174/82, temperature 96.8, pulse 93, respiration rate 18. 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 08/28/16 Ergocalciferol (Vitamin D2) (Vitamin D) 400 Unit Tablet, 1 TAB PO QD 08/28/16 Phenylephrine HCl (Nasal [place]) 30 Ml [place], 2 SPRAY NS QD 08/28/16 Furosemide (Furosemide) 40 Mg Tablet, 1 TAB PO DAILY, TAB 08/28/16 Folic Acid (Folic Acid) 1 Mg Tablet, 1 TAB PO DAILY, TAB 08/28/16 Ferrous Sulfate (Ferrous Sulfate) 325 Mg Tablet, 1 TAB PO 1100,2100, TAB BEST WITH FOOD. 08/28/16 Calcium Carbonate (Calcium) 500 Mg Tablet, 500 MG PO QD 08/28/16 Aspirin (Aspirin) 325 Mg Tablet, 1 TAB PO DAILY, #30 TAB 5 Refills 08/28/16 Ondansetron HCl (Zofran) 8 Mg Tablet, Q8H 05/07/14 Vitamin B Complex (Vitamin B Complex) 1 Each Capsule, DAILY 05/07/14 Multivitamins (Multivitamin) 1 Tab Tablet, 1 TAB PO DAILY 10/30/09 Discontinued Reported Medications [Folic] No Conflict Check, 400 MG DAILY 05/07/14 Ranitidine HCl (Zantac) 150 Mg Tablet, 150 MG PO BID, TAB Take 1 tablet, by mouth, 2 times a day. 05/07/14 Magnesium Hydroxide/Al Hydrox (Maalox) 30 Ml Suspension, 30 ML PO QID 10/30/09 Calcium Citrate/Vitamin D3 (Calcium Citrate + D Caplet) 1 Tab Tablet, 1 TAB PO DAILY 10/30/09 Cholecalciferol (Vitamin D) 1,000 Unit Tablet, 1000 UNIT PO DAILY 10/30/09 Allergies: Coded Allergies: sulfamethoxazole (Verified Allergy, Mild, NAUSEA, 08/28/16) trimethoprim (Verified Allergy, Mild, NAUSEA, 08/28/16) Family History Family History: Mother at 96 of old age Father was killed in his 70s from a farm accident Social History Smoking Status: Never smoker Housing: house Advance Directives: Yes Full Code Social History Comments Primary care provider-Dr. Meek López ( [place]) Oncology-Dr. Guzman Review of Systems Constitutional: REPORTS: fatigue ENMT Nose: FOUND: nosebleeds (brief this morning), see HPI All Other Systems All Other Systems: Reviewed (remainder of 10-point ROS Neg.) Physical Exam General General Nourishment: well nourished, well developed Vital Signs Vital Signs Date Time Temp Pulse Resp B/P Pulse Ox O2 Delivery O2 Flow Rate FiO2 08/28/16 15:52 96.5 93 18 174/82 Room Air Height (Feet): 5 Height (Inches): 2.00 Eyes Brief: FOUND: EOMI, PERRL ENMT Brief: FOUND: mucosa moist, normal dentition, NOT FOUND: pharnyx erythema Neck Brief: FOUND: midline, NOT FOUND: adenopathy, carotid bruits, tracheal deviation Respiratory Brief: FOUND: clear all fuentes, equal bilaterally Cardiovascular (brief) Cardiac Brief: FOUND: pedal edema (RLE >LLE), regular rate, regular rhythm Abdomen (brief) Abdominal Brief: FOUND: BS normo active x4, soft, NOT FOUND: distended, tender Integumentary (brief) Integumentary Brief: FOUND: dry, pink, warm Neurologic (brief) Neurological Brief: FOUND: cranial 2-12 intact, motor (strength equal x 4 ext) , sensory (intact x4 ext) Neurologic RN Documented GCS Eye Opening: Verbal: Motor: Total: Psychiatric (brief) FOUND: alert, attentive, normal affect, oriented Assessment & Plan Problems: (1) Nasal septal perforation Status: Chronic Assessment & Plan: chronic- Followed by Dr Joe Ardon ENT (2) Ovarian cancer Status: Chronic Assessment & Plan: Currently under treatment-Taxol (3) Anemia Status: Chronic Qualifiers: Anemia type: iron deficiency (4) GERD (gastroesophageal reflux disease) Status: Chronic (5) Hypothyroidism, acquired Status: Chronic (6) Hx of Hodgkins lymphoma Status: Resolved Plan/Intensity of Service Will admit patient. Outpatient observation under care of Dr. Alonso for recent epistaxis with known septal perforation. Hemoglobin this morning was 9.8 . Will recheck now on admission. Patient did receive 1 liter of IV fluids at the clinic today. Will also obtain a CMP and urinalysis for laboratory completeness. Have asked nursing staff to obtain orthostatic vital signs. SCDs to bilateral lower extremity for DVT prophylaxis. Encourage patient to continue to utilize LAN hose to the right lower extremity given her chronic edema. Zofran as needed for nausea and vomiting She may have regular diet and be up in room with assistance. We will recheck a CBC tomorrow morning to follow blood counts to rule out acute bleeding. Will discuss further orders and plan of care with attending, Dr. Davis. Time of discharge medical care will return to primary care provider, Dr. Mario López Code Status Full Code Hospital Course Summary Disclaimer The hospital course summary below is not to be considered part of the above Progress Note. Hospital Course Summary Will admit patient. Outpatient observation under care of Dr. Alonso for recent epistaxis with known septal perforation. Hemoglobin this morning was 9.8 . Will recheck now on admission. Patient did receive 1 liter of IV fluids at the clinic today. Will also obtain a CMP and urinalysis for laboratory completeness. Have asked nursing staff to obtain orthostatic vital signs. SCDs to bilateral lower extremity for DVT prophylaxis. Encourage patient to continue to utilize LAN hose to the right lower extremity given her chronic edema. Zofran as needed for nausea and vomiting She may have regular diet and be up in room with assistance. We will recheck a CBC tomorrow morning to follow blood counts to rule out acute bleeding. Will discuss further orders and plan of care with attending, Dr. Davis. Time of discharge medical care will return to primary care provider, Dr. Mario DAVIS,NELSON Umaña MD 08/28/16 180: Past Medical History Current Medications Home Meds Active Scripts Levothyroxine Sodium (Synthroid) 75 Mcg Tablet, 75 MCG PO DAILY for 30 Days, TAB Prov:ANA BEATTY PROPERTY STAFF ACCOUNTANT 05/09/14 Magnesium Oxide (Magnesium) 400 Mg Capsule, 400 MG PO BID, #14 CAP Prov:ANA BEATTY PROPERTY STAFF ACCOUNTANT 05/09/14 Reported Medications Potassium Chloride (Potassium Chloride) 20 Meq Tablet.er, 20 MEQ PO QD, TAB Take 1 tablet, by mouth, two times a day with meals. 08/28/16 Ergocalciferol (Vitamin D2) (Vitamin D) 400 Unit Tablet, 1 TAB PO QD 08/28/16 Phenylephrine HCl (Nasal [place]) 30 Ml [place], 2 SPRAY NS QD 08/28/16 Furosemide (Furosemide) 40 Mg Tablet, 1 TAB PO DAILY, TAB 08/28/16 Folic Acid (Folic Acid) 1 Mg Tablet, 1 TAB PO DAILY, TAB 08/28/16 Ferrous Sulfate (Ferrous Sulfate) 325 Mg Tablet, 1 TAB PO 1100,2100, TAB BEST WITH FOOD. 08/28/16 Calcium Carbonate (Calcium) 500 Mg Tablet, 500 MG PO QD 08/28/16 Aspirin (Aspirin) 325 Mg Tablet, 1 TAB PO DAILY, #30 TAB 5 Refills 08/28/16 Ondansetron HCl (Zofran) 8 Mg Tablet, Q8H 05/07/14 Vitamin B Complex (Vitamin B Complex) 1 Each Capsule, DAILY 05/07/14 Multivitamins (Multivitamin) 1 Tab Tablet, 1 TAB PO DAILY 10/30/09 Discontinued Reported Medications [Folic] No Conflict Check, 400 MG DAILY 05/07/14 Ranitidine HCl (Zantac) 150 Mg Tablet, 150 MG PO BID, TAB Take 1 tablet, by mouth, 2 times a day. 05/07/14 Magnesium Hydroxide/Al Hydrox (Maalox) 30 Ml Suspension, 30 ML PO QID 10/30/09 Calcium Citrate/Vitamin D3 (Calcium Citrate + D Caplet) 1 Tab Tablet, 1 TAB PO DAILY 10/30/09 Cholecalciferol (Vitamin D) 1,000 Unit Tablet, 1000 UNIT PO DAILY 10/30/09 Allergies: Coded Allergies: sulfamethoxazole (Verified Allergy, Mild, NAUSEA, 08/28/16) trimethoprim (Verified Allergy, Mild, NAUSEA, 08/28/16) Assessment & Plan Problems: (1) Orthostatic hypotension Status: Acute (2) Epistaxis Status: Acute Assessment & Plan: Controlled at home (3) Anemia Status: Chronic Qualifiers: Anemia type: iron deficiency Assessment & Plan: Recent outpatient workup with iron deficiency demonstrated (4) Ovarian cancer Status: Chronic Assessment & Plan: Metastatic, bulky abdominal adenopathy (5) GERD (gastroesophageal reflux disease) Status: Chronic (6) Hypothyroidism, acquired Status: Chronic (7) Hx of Hodgkins lymphoma Status: Resolved (8) Nasal septal perforation Status: Chronic (9) Lymphedema of right lower extremity Status: Chronic Assessment I have independently evaluated and examined this patient. I reviewed the chart, the patient's history, and the PROPERTY STAFF ACCOUNTANT's documented findings as above. We discussed and formulated the assessment and plan as above with additions as below: Mrs. Cedeno is a nosebleed this morning which she felt came under control without difficulty. She was subsequently seen in the office for chemotherapy where she reported that she felt a little shaky and not quite up to par. She denied dizziness, vision blacking out, or difficulty walking. She had no focal neurological deficits by patient history. Her legs often feel weak but she did not note any change from baseline today. She did not feel feverish and denies nausea or vomiting and has had no diarrhea. She received scheduled dose of Taxol and Avastin was held due to the epistaxis she had prior to therapy. She was orthostatic in the office and received 1 L of normal saline but following fluids orthostasis persisted with systolic pressure dropping from approximately 170 to 116. She was subsequently referred for hospitalization and further evaluation. On examination the patient is alert and cooperative. Speech is fluent. Conjunctiva clear and sclera anicteric. Respirations are nonlabored and airflow good. Cardiac rhythm is regular with normal S1/S2. Bilateral carotid CEA scars are present and well-healed Abdomen benign. Lymphedema +2 RLE. Motor tone and power are normal, no drift present, sensation intact to light touch/cold 4 extremities, mild hypersensitivity to palpitation below the knees ; EOMI, facial structure symmetric, tongue midline. Hemoglobin in the office today was 9.8, to be reassessed. Last potassium was 5.0 on 08/06-reevaluate. Known iron deficiency anemia from recent evaluation. Continue hydration, monitor orthostatics, follow hemoglobin. Plan/Intensity of Service Discussed with Dr. Rodriguez, laboratory data reviewed, old records reviewed. ANSELMO FINE APRN Aug 28, 2016 16:25 NELSON DAVIS MD Aug 28, 2016 18:07
[2016-08-28] MEDS ORDERED: FOLI1TAB15 PO (17:19)
[2016-08-28] MEDS ORDERED: FURO40TA5 PO (17:19)
[2016-08-28] MEDS ORDERED: POTA-81 PO (17:19)
[2016-08-28] MEDS ORDERED: CALC-52 PO (17:19)
[2016-08-28] MEDS ORDERED: ERGO400T3 PO (17:19)
[2016-08-28] MEDS ORDERED: ASPI325T PO (17:19)
[2016-08-28] MEDS ORDERED: FERR-70 PO (17:19)
[2016-08-28] MEDS ORDERED: PHEN30SP5 NS (17:19)
[2016-08-28 17:21] VITALS: BP 164/85; PULSE 87
[2016-08-28 17:23] VITALS: BP 189/79; PULSE 88
[2016-08-28 17:25] VITALS: BP 160/81; PULSE 98
[2016-08-28 17:26] LABS: HCT - HEMATOCRIT 32.1 % (36-46); HGB - HEMOGLOBIN 9.9 GM/DL (12-16); MEAN CORPUSCULAR HGB 29.2 UUG (26-34); MEAN CORPUSCULAR HGB CONC(MCHC 30.8 GM/DL (31-37); MEAN CORPUSCULAR VOLUME 94.7 UM3 (80-100); MEAN PLATELET VOLUME 10.6 UM3 (9.4-12.4); RED BLOOD COUNT 3.39 M/MM3 (4.00-5.20); WBC - WHITE BLOOD COUNT 3.3 T/MM3 (4.5-11.0)
[2016-08-28] MEDS ORDERED: PHENYLEPHRINE 0.5% EA NOSTRIL SCH (18:15)
[2016-08-28 18:26] LABS: ANION GAP 11 MEQ/L (5-15); BUN/CREATININE RATIO 16 RATIO (6-26); CALCIUM 9.2 MG/DL (8.4-10.2); CHLORIDE 107 MEQ/L (98-107); CO2 - CARBON DIOXIDE 25 MEQ/L (22-30); CREATININE 0.9 MG/DL (0.7-1.2); GLOMERULAR FILTRATION RATE 61; GLUCOSE 138 MG/DL (65-110); POTASSIUM 4.7 MEQ/L (3.6-5); SODIUM 143 MEQ/L (134-144)
[2016-08-28 18:26] LABS: ANISOCYTOSIS 2+; BAND NEUTROPHILS # 0.4 T/MM3; LYMPHOCYTES # (MANUAL) 0.2 T/MM3 (1-4.8); NEUTROPHILS #(MANUAL)-ABSOLUTE 2.6 T/MM3 (1.8-7.7); POIKILOCYTOSIS 1+; TOTAL CELLS COUNTED 100 %
[2016-08-28] MEDS: NORMAL SALINE 1,000 ML IV SCH (18:44)
--- NOTE | 2016-08-28 19:14 | NUR ---
SHIFT SUMMARY PT SITTING EATING DINNER AT THIS TIME. PT DENIED PAIN. PT DENIED DIZZINESS. PT ALERT AND ORIENTED X3. PT HAS NOT VOID YET STILL NEED TO OBTAIN UA.
[2016-08-28 20:38] LABS: BLOOD, URINE NEGATIVE (NEGATIVE); COLOR,URINE YELLOW (YELLOW); LEUKOCYTE ESTERASE ,URINE NEGATIVE (NEGATIVE); NITRITE,URINE NEGATIVE (NEGATIVE); UROBILINOGEN,URINE 0.2 EU/DL (NORMAL)
[2016-08-28 21:20] VITALS: PULSE 98; RESP 18
[2016-08-28 21:40] VITALS: BP 146/75; PULSE 94; RESP 20; O2SAT 96
[2016-08-29 00:25] VITALS: BP 150/80; PULSE 97; RESP 18; TEMP 96.4; O2SAT 97
[2016-08-29 05:19] LABS: HCT - HEMATOCRIT 32.9 % (36-46); HGB - HEMOGLOBIN 10.2 GM/DL (12-16); IMMATURE GRANULOCYTE # (AUTO) 0.03 T/MM3 (0.00-0.03); IMMATURE GRANULOCYTE % (AUTO) 0.9 % (0.0-0.5); LYMPHOCYTES # (AUTO) 0.4 T/MM3 (1-4.8); LYMPHOCYTES % (AUTO) 11.7 % (23-45); MEAN CORPUSCULAR VOLUME 93.5 UM3 (80-100); MEAN PLATELET VOLUME 11.3 UM3 (9.4-12.4); MONOCYTES # (AUTO) 0.2 T/MM3 (0-0.8); MONOCYTES % (AUTO) 6.7 % (0-9.0); NEUTROPHILS #(AUTO)-ABSOLUTE 2.8 T/MM3 (1.8-7.7); NEUTROPHILS % (AUTO) 80.7 % (33-66); RED BLOOD COUNT 3.52 M/MM3 (4.00-5.20); WBC - WHITE BLOOD COUNT 3.4 T/MM3 (4.5-11.0)
[2016-08-29] MEDS: NORMAL SALINE 1,000 ML IV SCH (05:20)
[2016-08-29 05:27] LABS: ALBUMIN 3.5 G/DL (3.5-5.0); ALBUMIN/GLOBULIN RATIO 1.3 RATIO (1.1-2.2); ALKALINE PHOSPHATASE 70 U/L (38-126); ALT (SGPT) 21 U/L (9-52); ANION GAP 12 MEQ/L (5-15); AST (SGOT) 28 U/L (14-36); BUN/CREATININE RATIO 19 RATIO (6-26); CALCIUM 8.9 MG/DL (8.4-10.2); CHLORIDE 108 MEQ/L (98-107); CO2 - CARBON DIOXIDE 24 MEQ/L (22-30); GLOMERULAR FILTRATION RATE 54; GLUCOSE 123 MG/DL (65-110); POTASSIUM 4.3 MEQ/L (3.6-5); SODIUM 144 MEQ/L (134-144); TOTAL PROTEIN 6.1 G/DL (6.3-8.2)
[2016-08-29] MEDS ORDERED: LEVOTHYROXINE 75 MCG TABLET PO SCH (06:30)
--- NOTE | 2016-08-29 06:49 | NUR ---
SUMMARY PT SLEPT WELL THIS SHIFT. ALERT AND ORIENTED X3. DENIED ANY PAIN THIS SHIFT. PT HAS BEEN UP SEVERAL TIMES TO USE THE BATHROOM. GAIT STEADY. PT HAS SCD'S ON ALL NIGHT. BP ELEVATED. PT DENIED ANY CHEST PAIN. ON IV FLUIDS THAT SHE TOLERATES WELL.
[2016-08-29 07:20] VITALS: BP 166/76; PULSE 92; RESP 16; TEMP 95.1; O2SAT 97
[2016-08-29 08:48] VITALS: BP 181/86; PULSE 94
[2016-08-29 08:50] VITALS: BP 180/81; PULSE 96
[2016-08-29 08:52] VITALS: BP 154/81; PULSE 100
[2016-08-29] MEDS ORDERED: ASPIRIN 325 MG TABLET PO SCH (09:00)
[2016-08-29] MEDS ORDERED: CALCIUM 500 MG TABLET PO SCH (11:15)
[2016-08-29] MEDS ORDERED: ONDANSETRON 8 MG TABLET PO SCH (11:15)
[2016-08-29] MEDS ORDERED: POTASSIUM CHLORIDE 20 MEQ TABLET PO SCH (11:15)
[2016-08-29] MEDS ORDERED: CHOLECALCIFEROL 1,000 UNIT TABLET PO SCH (11:15)
[2016-08-29 11:16] VITALS: BP 168/71
--- NOTE | 2016-08-29 12:30 | NUR ---
STATUS PT ALERT AND ORIENTED X3. PT ON RA, DENIES SOA. DENIES PAIN OR N/V AT THIS TIME. IVF INFUSING ORDERED INTO RIGHT CHEST PAC. ADEQUATE URINE OUTPUT. PT ABLE TO MAKE NEEDS KNOWN. CALL LIGHT WITHIN REACH.
--- NOTE | 2016-08-29 12:40 | NUR ---
CM THIS WORKER MET WITH PT IN ROOM. PT WAS SITTING UP IN CHAIR AT THIS TIME. THIS WORKER INTRODUCED SELF AND ROLE OF CASE MANAGEMENT. PT REPORTED THAT SHE LIVES AT HOME ALONE. PT REPORTED THAT SHE IS DOING WELL. HAS A WALKER AT HOME. PT REPORTED THAT SHE HAS FAMILY THAT LIVES NEARBY AND THAT THEY ARE AVAILABLE TO HELP IF SHE NEEDS ANYTHING. PT REPORTED THAT SHE HAS CONTACT THROUGH THE [facility] FOR MEALS IF NEEDED. PT REPORTED THAT FAMILY IS HELPING WITH TRANSPORTATION TO AND FROM HER DOCTOR'S AND CHEMOTHERAPY. THIS WORKER DISCUSSED HOME HEALTH SERVICES. PT DECLINED NEEDING HOME HEALTH AT THIS TIME. THIS WORKER PROVIDED CONTACT INFORMATION FOR PT AND ENCOURAGED TO CONTACT THIS WORKER WITH ANY NEEDS.
--- NOTE | 2016-08-29 13:01 | DSPDOC ---
General Date Date DATE: 08/29/16 TIME: 12:47 Attending Physician Tasha Davis MD Admitting Physician Tasha Davis MD Consulting Physician Admitting Diagnosis dehydration Discharge Diagnosis Orthostatic hypotension Epistaxis, brief Metastatic ovarian carcinoma Iron deficiency anemia Lymphedema, right lower extremity Laboratory Laboratory Tests Test 08/28/16 16:59 08/28/16 18:08 08/28/16 20:28 08/29/16 04:38 White Blood Count 3.3T/MM3 (4.5-11.0) 3.4T/MM3 (4.5-11.0) Red Blood Count 3.39M/MM3 (4.00-5.20) 3.52M/MM3 (4.00-5.20) Hemoglobin 9.9GM/DL (12-16) 10.2GM/DL (12-16) Hematocrit 32.1% (36-46) 32.9% (36-46) Mean Corpuscular Volume 94.7UM3 (80-100) 93.5UM3 (80-100) Mean Corpuscular Hemoglobin 29.2UUG (26-34) 29.0UUG (26-34) Mean Corpuscular Hemoglobin Concent 30.8GM/DL (31-37) 31.0GM/DL (31-37) RDW Standard Deviation 56.7FL (36.9-50.2) 55.9FL (36.9-50.2) Platelet Count 176T/MM3 (130-400) 230T/MM3 (130-400) Mean Platelet Volume 10.6UM3 (9.4-12.4) 11.3UM3 (9.4-12.4) Immature Granulocyte % (Auto) % (0.0-0.5) 0.9% (0.0-0.5) Neutrophils (%) (Auto) % (33-66) 80.7% (33-66) Lymphocytes (%) (Auto) % (23-45) 11.7% (23-45) Monocytes (%) (Auto) % (0-9.0) 6.7% (0-9.0) Eosinophils (%) (Auto) % (0-4) 0.0% (0-4) Basophils (%) (Auto) % (0-2) 0.0% (0-2) Absolute Immature Granulocyte (auto T/MM3 (0.00-0.03) 0.03T/MM3 (0.00-0.03) Absolute Neutrophils (auto) T/MM3 (1.8-7.7) 2.8T/MM3 (1.8-7.7) Absolute Lymphocytes (auto) T/MM3 (1-4.8) 0.4T/MM3 (1-4.8) Absolute Monocytes (auto) T/MM3 (0-0.8) 0.2T/MM3 (0-0.8) Absolute Eosinophils (auto) T/MM3 (0-0.5) 0.0T/MM3 (0-0.5) Absolute Basophils (auto) T/MM3 (0-0.2) 0.0T/MM3 (0-0.2) Neutrophils % (Manual) 79.0% (33-66) Band Neutrophils % 13.0% (0-6) Lymphocytes % (Manual) 7.0% (23-45) Monocytes % (Manual) 1.0% (0-9.0) Absolute Neutrophils (Manual) 2.6T/MM3 (1.8-7.7) Band Neutrophils # 0.4T/MM3 Lymphocytes # (Manual) 0.2T/MM3 (1-4.8) Monocytes # (Manual) 0.0T/MM3 (0-0.8) Poikilocytosis 1+ Anisocytosis 2+ Red Cell Morphology Comment Abnormal Turbidity < 20 (0-20) < 20 (0-20) Sodium Level 143MEQ/L (134-144) 144MEQ/L (134-144) Potassium Level 4.7MEQ/L (3.6-5) 4.3MEQ/L (3.6-5) Chloride Level 107MEQ/L (98-107) 108MEQ/L (98-107) Carbon Dioxide Level 25MEQ/L (22-30) 24MEQ/L (22-30) Anion Gap 11MEQ/L (5-15) 12MEQ/L (5-15) Blood Urea Nitrogen 14.0MG/DL (7-17) 19.0MG/DL (7-17) Creatinine 0.9MG/DL (0.7-1.2) 1.0MG/DL (0.7-1.2) Glomerular Filtration Rate Calc 61 54 BUN/Creatinine Ratio 16RATIO (6-26) 19RATIO (6-26) Glucose Level 138MG/DL (65-110) 123MG/DL (65-110) Calculated Osmolality 278MOSM/KG (261-280) 280MOSM/KG (261-280) Calcium Level 9.2MG/DL (8.4-10.2) 8.9MG/DL (8.4-10.2) Icterus Index < 2 (0-7) < 2 (0-7) Chemistry Specimen Hemolysis < 15 (0-25) < 15 (0-25) Urine Collection Type Cleancatch-midstream Urine Color Yellow (YELLOW) Urine Turbidity Clear (CLEAR) Urine pH 7.0 (5.0-8.0) Urine Specific [place] 1.015 (1.015-1.025) Urine Protein Negative (NEGATIVE) Urine Glucose (UA) Negative (NEGATIVE) Urine Ketones Negative (NEGATIVE) Urine Blood Negative (NEGATIVE) Urine Nitrite Negative (NEGATIVE) Urine Bilirubin Negative (NEGATIVE) Urine Urobilinogen 0.2EU/DL (NORMAL) Urine Leukocyte Esterase Negative (NEGATIVE) Urinalysis Comment Microscopic not ind. Total Bilirubin 0.80MG/DL (0.20-1.30) Aspartate Amino Transf (AST/SGOT) 28U/L (14-36) Alanine Aminotransferase (ALT/SGPT) 21U/L (9-52) Alkaline Phosphatase 70U/L (38-126) Total Protein 6.1G/DL (6.3-8.2) Albumin 3.5G/DL (3.5-5.0) Globulin 2.6G/DL (2.4-3.6) Albumin/Globulin Ratio 1.3RATIO (1.1-2.2) History of Present Illness Patient is a pleasant 76-year-old female who is currently under the treatment of Dr. Ellison for relapsed ovarian cancer. She started this round of chemotherapy (Taxol) on 05/15/16 and has been tolerating this well. Chemotherapy was placed on hold for scheduled right endarterectomy on 07/16/16. She tolerated this without any complications. Prior to surgery she did have one episode of epistaxis at which time she was seen by Dr. Juancarlos Ardon (ENT). She was found to have a nasal septum perforation. He recommended moisturizing with saline spray and ointment. She has had no further complications. He awoke and had a brief nosebleed lasted less than 5 minutes. She was seen this for Taxol treatment at the clinic and was reported to be orthostatic. She was given 1 liter of IV fluids however continued to feel fatigued. Following fluid there was persistent orthostasis and she was referred for hospitalization on an observation basis. Hemoglobin was checked as an outpatient this morning and was found to be 9.8. White count was 4.4, hematocrit 31.5, platelet count 199. Blood pressure on arrival to [facility] this afternoon was 174/82, temperature 96.8, pulse 93, respiration rate 18. We did discuss advanced directives and patient does verify she wishes to be a full code Hospital Course Outpatient observation under care of Dr. Davis for recent epistaxis with known septal perforation. Hemoglobin the morning of admission was 9.8 . Patient received 1 liter of IV fluids at the clinic with orthostatic hypotension following fluids. Hemoglobin on admission was 9.9 and repeated 10.2 on 08/29 without evidence of recurrent bleeding. Electrolytes and renal function were unremarkable on admission and unchanged on the . The patient was mildly hypertensive throughout the hospitalization with minimal orthostatic change although blood pressure dropped from 181/86 supine to 154/81 standing without symptoms prior to discharge. On 08/29 Mrs. Cedeno reported that she felt fine. She denied dyspnea, lightheadedness, or nausea. Appetite was good. She had no recurrent epistaxis or any other identified bleeding overnight. Patient was alert and respirations were nonlabored with good airflow. Abdomen is benign and right lower extremity edema unchanged from baseline. Laboratory data is unchanged from admission is noted. Patient expressed some concern about her elevated blood pressures but indicated that typically systolic blood pressure runs 115 to about 125. She is asked to monitor blood pressure a couple of times a week and follow up with her primary care physician for reassessment. Stable for discharge at this time with plans to reassess with her primary care physician in the near future and with Dr. Ellison as scheduled in 2 weeks. Medications are unchanged. Problems: (1) Orthostatic hypotension Status: Acute (2) Epistaxis Status: Acute Assessment & Plan: Controlled at home (3) Anemia Status: Chronic Assessment & Plan: Recent outpatient workup with iron deficiency demonstrated (4) Ovarian cancer Status: Chronic Assessment & Plan: Metastatic, bulky abdominal adenopathy (5) GERD (gastroesophageal reflux disease) Status: Chronic (6) Hypothyroidism, acquired Status: Chronic (7) Hx of Hodgkins lymphoma Status: Resolved (8) Nasal septal perforation Status: Chronic (9) Lymphedema of right lower extremity Status: Chronic Code Status Full Code Home Meds Active Scripts Levothyroxine Sodium (Synthroid) 75 Mcg Tablet, 75 MCG PO DAILY for 30 Days, TAB Prov:[facility] 05/09/14 Magnesium Oxide (Magnesium) 400 Mg Capsule, 400 MG PO BID, #14 CAP Prov:[facility] 05/09/14 Reported Medications Potassium Chloride (Potassium Chloride) 20 Meq Tablet.er, 20 MEQ PO QD, TAB Take 1 tablet, by mouth, two times a day with meals. 08/28/16 Ergocalciferol (Vitamin D2) (Vitamin D) 400 Unit Tablet, 1 TAB PO QD 08/28/16 Phenylephrine HCl (Nasal [place]) 30 Ml [place], 2 SPRAY NS QD 08/28/16 Furosemide (Furosemide) 40 Mg Tablet, 1 TAB PO DAILY, TAB 08/28/16 Folic Acid (Folic Acid) 1 Mg Tablet, 1 TAB PO DAILY, TAB 08/28/16 Ferrous Sulfate (Ferrous Sulfate) 325 Mg Tablet, 1 TAB PO 1100,2100, TAB BEST WITH FOOD. 08/28/16 Calcium Carbonate (Calcium) 500 Mg Tablet, 500 MG PO QD 08/28/16 Aspirin (Aspirin) 325 Mg Tablet, 1 TAB PO DAILY, #30 TAB 5 Refills 08/28/16 Ondansetron HCl (Zofran) 8 Mg Tablet, Q8H 05/07/14 Vitamin B Complex (Vitamin B Complex) 1 Each Capsule, DAILY 05/07/14 Multivitamins (Multivitamin) 1 Tab Tablet, 1 TAB PO DAILY 10/30/09 Discontinued Reported Medications [Folic] No Conflict Check, 400 MG DAILY 05/07/14 Ranitidine HCl (Zantac) 150 Mg Tablet, 150 MG PO BID, TAB Take 1 tablet, by mouth, 2 times a day. 05/07/14 Magnesium Hydroxide/Al Hydrox (Maalox) 30 Ml Suspension, 30 ML PO QID 10/30/09 Calcium Citrate/Vitamin D3 (Calcium Citrate + D Caplet) 1 Tab Tablet, 1 TAB PO DAILY 10/30/09 Cholecalciferol (Vitamin D) 1,000 Unit Tablet, 1000 UNIT PO DAILY 10/30/09 Face to Face Encounter I met with patient on the day of dismissal and discussed follow up appointments , medications, and safety plan. Discharge Disposition home Copies To 1: ЕЛЕНА ELLISON MD Documentation Requirements Anemia Anemia Etiology: Iron Deficiency Anemia Acuity: Chronic TASHA DAVIS MD Aug 29, 2016 12:57
--- NOTE | 2016-08-29 14:10 | NUR ---
DISMISSAL PT DISMISSED BY WHEELCHAIR TO HOME AT THIS TIME, ACCOMPANIED BY FAMILY. DISMISSAL INSTRUCTIONS REVIEWED, QUESTIONS ANSWERED. PT EXPRESSES UNDERSTANDING OF DISMISSAL INSTRUCTIONS, INCLUDING BUT NOT LIMITED TO, MEDICATION REGIMEN, WELL S/S TO REPORT TO DR SUCH NOSE BLEEDS OR BLOODY BOWEL MOVEMENTS. PT EXPRESSES UNDERSTANDING OF SCHEDULING FOLLOW-UP APPOINTMENTS. PAC DE-ACCESSED, BELONGINGS GATHERED.
[2016-08-29] MEDS ORDERED: FERROUS SULFATE 324 MG TABLET PO SCH (21:00)
[2016-08-29] MEDS ORDERED: MAGNESIUM OXIDE 400 MG TABLET PO SCH (21:00)
[2016-08-30] MEDS ORDERED: FOLIC ACID 1 MG TABLET PO SCH (09:00)
[2016-08-30] MEDS ORDERED: MULTIVITAMIN PLAIN TABLET PO SCH (09:00)
[2016-08-30] MEDS ORDERED: FUROSEMIDE 40 MG TABLET PO SCH (09:00)
== END 2016-08-29 14:21 | disposition home or self-care (01) ==
LOC: MED 15:21
PROVIDERS: ADMIT Internal Medicine; ATTEND Internal Medicine
DX: E86.0 Dehydration (principal); I95.1 Orthostatic hypotension; R04.0 Epistaxis; C77.2 Secondary and unspecified malignant neoplasm of intra-abdominal lymph nodes; C56.2 Malignant neoplasm of left ovary; C56.1 Malignant neoplasm of right ovary; D50.9 Iron deficiency anemia, unspecified; I89.0 Lymphedema, not elsewhere classified; K21.9 Gastro-esophageal reflux disease without esophagitis; E03.9 Hypothyroidism, unspecified; Z85.71 Personal history of Hodgkin lymphoma; J34.89 Other specified disorders of nose and nasal sinuses; D64.81 Anemia due to antineoplastic chemotherapy; D70.2 Other drug-induced agranulocytosis; G62.0 Drug-induced polyneuropathy; T45.1X5A Adverse effect of antineoplastic and immunosuppressive drugs, initial encounter; T50.995A Adverse effect of other drugs, medicaments and biological substances, initial encounter; Z79.899 Other long term (current) drug therapy; Z92.3 Personal history of irradiation
CPT/HCPCS: 36415; 80048; 80053; 81003; 85025; 96360; 96361; A9270; J1642; J7030

== ENCOUNTER 2016-09-13 17:25 | Emergency (ER) | payer MEDICARE, BC ==
[~2016-09-13] VITALS: Ht 158.8 cm; Wt 58.1 kg
[~2016-09-13 17:25] MED LIST changes: -ASPI-611 PO; +ASPI325T PO; -CALC-278 PO; +CALC-52 PO; -CHOL100017 PO; +ERGO400T3 PO; +FERR-70 PO; +FOLI1TAB15 PO; -FOLIC; +FURO40TA5 PO; -MAGN30OR PO; +PHEN30SP5 NS; +POTA-81 PO; -RANI150T12 PO
[2016-09-13 17:28] VITALS: Ht 158.8 cm; Wt 58.1 kg
--- OUTSIDE RECORDS SUMMARY | 2016-09-13 17:31 | XMS REPORT | Continuity of Care Document ---
Demographics Preferred Language Unknown Marital Status Unknown Zoroastrianism Affiliation Unknown Race Unknown Ethnic Group Unknown Author Author [facility] Organization [facility] Address Unknown Phone Unavailable Allergies Active [...] METOCLOPRAMIDE 07/16/2016 07/17/2016 [id number] MORPHINE 07/16/2016 07/17/2016 [id number] MAGNESIUM OXIDE 07/16/2016 07/17/2016 0700 FOLIC ACID [...] 1.015 1.005-1.025 PH 6.5 6.0-8.0 LEUKO 500 Tor[place]/ul NEG NITRITE NEG NEG PROTEIN NEG. NEG. [...] Status Pt. Type Provider Facility Loc./Unit Complaint [id number] 05/09/2016 09:47:00 ACT Unknown [id number] 03/17/2016 14:04:00 ACT Unknown [id number] 03/17/2016 14:04:00 ACT Unknown [id number] 03/17/2016 14:04:00 ACT Unknown [id number] 07/04/2015 12:46:00 ACT Unknown [id number] 06/29/2015 09:49:00 ACT Unknown [id number] 05/31/2015 17:47:00 ACT Unknown [id number] 06/06/2014 07:55:00 ACT Unknown [id number] 06/06/2014 07:44:00 ACT Unknown [id number] 03/24/2014 10:00:00 ACT Unknown [id number] 01/13/2014 12:58:00 ACT Unknown [id number] 06/28/2013 11:48:00 ACT Unknown [id number] 06/28/2013 10:15:00 ACT Unknown [id number] 03/29/2013 11:06:00 ACT Unknown [id number] 03/17/2013 09:15:00 ACT Unknown
[2016-09-13] MEDS ORDERED: NORMAL SALINE 1,000 ML IV ONE (17:46)
--- NOTE | 2016-09-13 17:48 | NUR ---
ORTHOS VERBALIZE SOME DIZZINESS WHILE STANDING
--- NOTE | 2016-09-13 17:53 | ERPDOC ---
Departure Disposition Decision Date: September 13, 2016 Disposition Decision Time: 20:25 (RUBEN HSIEH DO) Disposition: 02 TO [facility] Impression Impression (CHELSEA PAZ DO) Impression: Primary Impression: Syncope Syncope type: unspecified Qualified Codes: R55 - Syncope and collapse Additional Impressions: Dehydration Leukocytosis Leukocytosis type: unspecified Qualified Codes: D72.829 - Elevated white blood cell count, unspecified Diarrhea Diarrhea type: unspecified type Qualified Codes: R19.7 - Diarrhea, unspecified Severity: Moderate (RUBEN HSIEH DO) Condition: Improved Seen By: Physician only (RUBEN HSIEH DO) Referrals: REVA LAWSON" (Family) Problems/Meds/Labs Reviewed?: Yes Medications reviewed and manag: Yes (RUBEN HSIEH DO) Mental Status: Alert, Oriented (CHELSEA PAZ DO) Follow up care ordered?: Yes Mental Status: Alert, Oriented (RUBEN HSIEH DO) HPI - Abdominal Pain General Chief Complaint: Nausea,Vomiting,Diarrhea Stated Complaint: LOOSE STOOLS,DEHYDRATED,WEAK,FAINTED Time Seen by Provider: 17:46 (CHELSEA PAZ DO) Time Seen by Provider: 18:33 Source: patient, family History/Exam Limitations: no limitations (RUBEN HSIEH DO) HPI - Abdominal Pain Initial Comments 76-year-old female presents to the emergency department with a chief complaint of diarrhea, dehydration, and a potential syncopal episode earlier today. Patient noticed that she was experiencing multiple episodes of non-bloody diarrhea. Patient reveals that she had a syncopal episode while standing in her home earlier today. She denies any current pain or discomfort. Patient does not note any exacerbating or remitting factors. Patient denies any injury from the syncopal episode. It was unwitnessed. Patient has active ovarian cancer and is currently undergoing chemotherapy. Her chemotherapy is managed by Dr. Motley. No other complaints or associated symptoms. Patient does note that she did receive "an injection to boost her white blood cell count" yesterday. She was at home when the incident occurred. Denies any recent trauma , travel, poorly prepared food, or recent antibiotic use. Occurred At: home Onset: Gradual (RUBEN HSIEH DO) Allergies: Coded Allergies: sulfamethoxazole (Verified Allergy, Mild, NAUSEA, 09/13/16) trimethoprim (Verified Allergy, Mild, NAUSEA, 09/13/16) Past History Patient Surgical History Hysterectomy Oophorectomy Porcine aortic valve replaced-2015 (TAVR) Appendectomy Cholecystectomy Bilateral carotid endarterectomy- right, 07/2016 The catheter placement-2009 () Past Medical History Metabolic: cancer, hypercholesterolemia, hypothyroidism ENMT: allergies Hematologic: anemia Psychological: depression () Metabolic: cancer, hypertension (RUBEN HSIEH ) Surgical History General: appendix, gallbladder, other Reproductive/: hysterectomy () Cardiac: valve replacement (RUBEN HSIEH ) Family History Family PMH: FOUND: CAD, [place], cancer, diabetes, hypothyroidsim () Family History: Negative (RUBEN HSIEH DO) Vaccines Hx Influenza Vaccination: Yes (2015) Hx Pneumococcal Vaccination: Yes (unknown ) () Social History Housing: house Advance Directives: Yes Full Code () Smoking Status: Never smoker Substance Use Type: does not use Alcohol Intake: none (RUBEN HSIEH DO) Review of Systems Constitutional Constitutional: DENIES: chills, fever (RUBEN HSIEH DO) Eyes General: DENIES: erythema, exudate Lids/Accessories: DENIES: erythema, swelling Vision: DENIES: acuity, blurring (RUBEN HSIEH DO) ENMT Ears: DENIES: drainage, erythema Hearing: DENIES: hearing loss Balance: DENIES: ataxia, falling to one side Sinuses: DENIES: congestion, pain Nose: DENIES: nosebleeds, pain Mouth/Throat: DENIES: painful swallowing, sore throat Teeth: DENIES: pain Jaw: DENIES: pain (RUBEN HSIEH DO) Cardiovascular Cardiac: DENIES: chest pain, dyspnea on exertion Rhythm/Rate: DENIES: irregular beat, palpitations Vascular: DENIES: pedal edema, unilateral swelling (RUBEN HSIEH DO) Pulmonary Respiratory: DENIES: cough, dyspnea, sputum (RUBEN HSIEH DO) GI Upper Abdomen: DENIES: nausea, pain, vomiting Lower Abdomen: diarrhea, DENIES: pain (RUBEN HSIEH DO) General: DENIES: dysuria, frequency (HSIEH,RUBEN C DO) Musculoskeletal General: DENIES: joint pain, tenderness (RUBEN HSIEH DO) Integumentary Skin: DENIES: itching, rash (RUBEN HSIEH DO) Neurological General: DENIES: headache, numbness, weakness (RUBEN HSIEH DO) Psychiatric Psychiatric: DENIES: emotional instability, suicidal ideation/attempt (RUBEN HSIEH DO) Endocrine Endocrine: DENIES: polydipsia, polyphagia (RUBEN HSIEH DO) Hematologic/Lymphatic Hematologic/Lymphatic: DENIES: frequent nosebleeds, lymphadenopathy (RUBEN HSIEH DO) Allergic/Immunological Allergic/Immunoligical: DENIES: allergic reactions, hives (RUBEN HSIEH DO) Physical Exam General General Nourishment: well nourished, well developed, appears stated age, no acute distress, adult General Body Habitus: well groomed Vitals and Pain First Documented Vital Signs Date Time Temp Pulse Resp B/P Pulse Ox O2 Delivery O2 Flow Rate FiO2 09/13/16 17:28 98.2 98 18 111/60 94 Room Air (RUBEN HSIEH DO) Vitals and Pain Weight: Kilograms: 58.100 Height (feet): 5 Height (inches): 2.50 Triage Pain Scale: (SEPTEMBER,CHELSEA M DO) RN VS reviewed by Provider: Yes (RUBEN HSIEH DO) Normal Exams: Head: Normocephalic w/o trauma Eyes: Pupils are PERRLA w/ EOMI, No scleral icterus, irritation, or foreign bodies noted ENMT: No facial trauma, nasal exudates, pharyngeal erythema, or exudates are noted Dental: No fractured, loose, or missing teeth noted Chest/Resp: Clear all fuentes, with good airflow, and symmetry bilaterally CV: Regular rate and rhythm, without murmur or gallop, Pulses 2+ all extremities, capillary refill, <2 seconds all ext., no pedal edema noted Abdomen: Bowel sounds positive, soft, non-tender, non-distended, no hepatosplenomegaly, masses or bruits noted Lymphatic: No lymphadenopathy, or lymphedema noted Musculoskeletal: No tenderness, or deformity noted, good range of motion, all extremities Integumentary: No rashes, hives, or bruising noted, hair and nails, without abnormality Neurologic: Patient is alert, and oriented, cranial nerves, motor/sensory/ cerebellar, exams w/o gross deficits, to observation Psychiatric: Patient exhibits, appropriate attention, emotion and affect (RUBEN HSIEH DO) Neck (brief) Neck: FOUND: trachea midline, NOT FOUND: tenderness (RUBEN HSIEH DO) Musculoskeletal (brief) Comments Back - No mid-line tenderness or deformity to palpation. Pelvis - Stable to compression. Non-tender. (RUBEN HSIEH DO) Differential Diagnoses Considering: C-Difficule Colitis, Dehydration, Diverticulitis, Food Poisoning, Gastroenteritis, Influenza (RUBEN HSIEH DO) Progress Results/Orders Orders Procedure Category Date Status Time Cbc W/Auto LAB 09/13/16 Complete Diff-Reflex Manual 17:46 Bmp - Basic Metabolic LAB 09/13/16 Complete Panel 17:46 Iv Lock (Ed Only) EDM 09/13/16 Transmitted 17:46 Normal Saline (Normal PHA 09/13/16 Complete Saline Iv) 17:46 Ondansetron Inj PHA 09/13/16 Complete (Zofran) 18:00 Gi Panel, Pcr, Stool LAB 09/13/16 Logged 17:46 Lactate - Lactic Acid LAB 09/13/16 Complete 17:46 Lactate - Lactic Acid LAB 09/13/16 Logged 22:16 Procalcitonin LAB 09/13/16 Complete 17:46 Iohexol (Omnipaque) PHA 09/13/16 Complete 18:27 Iohexol (Omnipaque) PHA 09/13/16 Complete 18:27 Normal Saline (Ns) PHA 09/13/16 Complete 18:28 Saline Flush (Iv PHA 09/13/16 Complete Flush) 18:28 Troponin I W LAB 09/13/16 Complete Hemolysis Index EKG EKG 09/13/16 Taken Cmp - Comprehensive LAB 09/13/16 Complete Metabolic Lipase LAB 09/13/16 Complete Ua, Dip Wreflex LAB 09/13/16 Complete [employer] 18:39 Ct Head W/O Contrast CT 09/13/16 Taken 18:39 Ct Cervical Spine W/O CT 09/13/16 Taken Contrast 18:[address] 09/13/16 Taken 18:39 Ct Abd/Pelvis CT 09/13/16 Taken W/Contrast Only 18:39 Blood Culture ORA 09/13/16 In Process 18:39 Iohexol (Omnipaque) PHA 09/13/16 Complete 19:24 Normal Saline (Ns) PHA 09/13/16 Complete 19:25 Straight Cath SOPHIA 09/13/16 In Process 20:01 Ciprofloxacin (Cipro PHA 09/13/16 Complete I.V.) 21:30 Metronidazole Ivpb PHA 09/13/16 Complete (Flagyl I.V.) 21:30 (RUBEN HSIEH DO) Lab Results Laboratory Tests Test 09/13/16 18:04 09/13/16 20:37 White Blood Count 40.7T/MM3 Red Blood Count 3.29M/MM3 Hemoglobin 9.9GM/DL Hematocrit 30.8% Mean Corpuscular Volume 93.6UM3 Mean Corpuscular Hemoglobin 30.1UUG Mean Corpuscular Hemoglobin Concent 32.1GM/DL RDW Standard Deviation 60.7FL Platelet Count 236T/MM3 Mean Platelet Volume 10.8UM3 Immature Granulocyte % (Auto) % Neutrophils (%) (Auto) % Lymphocytes (%) (Auto) % Monocytes (%) (Auto) % Eosinophils (%) (Auto) % Basophils (%) (Auto) % Absolute Immature Granulocyte (auto T/MM3 Absolute Neutrophils (auto) T/MM3 Absolute Lymphocytes (auto) T/MM3 Absolute Monocytes (auto) T/MM3 Absolute Eosinophils (auto) T/MM3 Absolute Basophils (auto) T/MM3 Neutrophils % (Manual) 90.0% Band Neutrophils % 9.0% Lymphocytes % (Manual) 1.0% Absolute Neutrophils (Manual) 36.6T/MM3 Band Neutrophils # 3.7T/MM3 Lymphocytes # (Manual) 0.4T/MM3 Poikilocytosis 1+ Anisocytosis 1+ Red Cell Morphology Comment Abnormal Turbidity < 20 Sodium Level 142MEQ/L Potassium Level 4.0MEQ/L Chloride Level 107MEQ/L Carbon Dioxide Level 22MEQ/L Anion Gap 13MEQ/L Blood Urea Nitrogen 26.0MG/DL Creatinine 0.8MG/DL Glomerular Filtration Rate Calc 70 BUN/Creatinine Ratio 33RATIO Glucose Level 96MG/DL Calculated Osmolality 278MOSM/KG Calcium Level 9.3MG/DL Total Bilirubin 0.80MG/DL Icterus Index < 2 Aspartate Amino Transf (AST/SGOT) 25U/L Alanine Aminotransferase (ALT/SGPT) 32U/L Alkaline Phosphatase 65U/L Troponin I < 0.012ng/ml Total Protein 6.1G/DL Albumin 3.7G/DL Globulin 2.4G/DL Albumin/Globulin Ratio 1.5RATIO Lipase 131U/L Plasma Lactate 1.0MMOL/L Procalcitonin < 0.05NG/ML Chemistry Specimen Hemolysis < 15 Urine Collection Type Straight cath Urine Color Yellow Urine Turbidity Clear Urine pH 5.5 Urine Specific [place] <=1.005 Urine Protein Negative Urine Glucose (UA) Negative Urine Ketones Negative Urine Blood Negative Urine Nitrite Negative Urine Bilirubin Negative Urine Urobilinogen 0.2EU/DL Urine Leukocyte Esterase Negative Urinalysis Comment Microscopic not ind. (RUBEN HSIEH DO) Medications Current ED Medications Sodium Chloride (Normal Saline IV) 1,000 ml @ 0 mls/hr Q0M ONCE IV Last administered on 09/13/16 18:11; Start 09/13/16 at 17:46; Stop 09/13/16 at 17:50; Status DC Ondansetron HCl (Zofran) 4 mg O ONCE IV Last administered on 09/13/16 18:12; Start 09/13/16 at 18:00; Stop 09/13/16 at 18:01; Status DC Iohexol (Omnipaque) 1 bottle STK-MED ONCE .ROUTE ; Start 09/13/16 at 18:27; Stop 09/13/16 at 18:28; Status DC Iohexol 1 bottle 1 bottle STK-MED ONCE .ROUTE ; Start 09/13/16 at 18:27; Stop 09/13/16 at 18:28; Status DC Sodium Chloride (NS) 0 ml @ As Directed STK-MED ONCE .ROUTE ; Start 09/13/16 at 18:28; Stop 09/13/16 at 18:29; Status DC Sodium Chloride (Iv Flush) 10 ml STK-MED ONCE .ROUTE ; Start 09/13/16 at 18:28; Stop 09/13/16 at 18:29; Status DC Iohexol 1 bottle 1 bottle STK-MED ONCE .ROUTE ; Start 09/13/16 at 19:24; Stop 09/13/16 at 19:25; Status DC Sodium Chloride (NS) 100 ml @ As Directed STK-MED ONCE .ROUTE ; Start 09/13/16 at 19:25; Stop 09/13/16 at 19:26; Status DC Ciprofloxacin 400 mg 400 mg O ONCE IV ; Start 09/13/16 at 21:30; Stop 09/13/16 at 21:31; Status DC Metronidazole/ Sodium Chloride (Flagyl I.v./NS) 100 ml @ 100 mls/hr O ONCE IV Last administered on 09/13/16t 22:00; Start 09/13/16 at 21:30; Stop 09/13/16 at 22:29; Status DC (RUBEN HSIEH DO) Progress Progress Labs / imaging were discussed in detail with the patient and family and questions are answered. Patient is given gentle IV hydration. Patient denies the presence of chest or abdominal discomfort. There is no dyspnea. Patient declines offered analgesic pain medication. Patient is discussed with the hospitalist Dr. Margy Lantigua who recommends transfer of the patient to a higher level of care due to the patient's active cancer and leukocytosis. Dr. Lantigua isn't comfortable keeping the patient at [facility] at this time. Patient and family are in agreement with the current plan of management. Patient is transferred due to the absence of oncology at [facility]. Patient is stable for transfer. Risk versus benefit of transfer is discussed in detail with the patient and family and questions are answered. Patient was never hypotensive in the emergency department did not have a lactic acid greater than 4 therefore did not require 30 mL/kg bolus of normal saline. No source of infection was found therefore the patient cannot be classified as sepsis. At 2119 Cipro/Flagyl intravenously were ordered in case the patient should be found to have sepsis secondary to an unknown source as sepsis was considered at 2119 but no source was found. Patient was accepted to [facility] by Dr. Mark Hernandez. The 76/36 blood pressure was an erroneous value taken with an inappropriately sized blood pressure cuff and is not a reliable blood pressure. (RUBEN HSIEH DO) EKG EKG : Rate: 60-100 Rhythm: sinus QRS: LBBB Intervals: normal ST/T: other (NO STEMI) Interpreted by: signing physician (RUBEN HSIEH DO) CT CT : CT: Head no contrast Interpretation: Normal (CT cervical spine: Negative. CTA chest: Negative. CT abdomen/pelvis: No acute processes.), Faxed Report (RUBEN HSIEH DO) CHELSEA PAZ DO September 13, 2016 17:53 RUBEN HSIEH DO September 13, 2016 21:56
[2016-09-13] MEDS ORDERED: ONDANSETRON 4mg/2ml INJECTION IV ONE (18:00)
--- NOTE | 2016-09-13 18:05 | NUR ---
PORT POWER PORT ACCESSED AND BLOOD COLLECTED FOR LAB
[2016-09-13 18:10] LABS: HCT - HEMATOCRIT 30.8 % (36-46); HGB - HEMOGLOBIN 9.9 GM/DL (12-16); MEAN CORPUSCULAR HGB 30.1 UUG (26-34); MEAN CORPUSCULAR HGB CONC(MCHC 32.1 GM/DL (31-37); MEAN CORPUSCULAR VOLUME 93.6 UM3 (80-100); MEAN PLATELET VOLUME 10.8 UM3 (9.4-12.4); RED BLOOD COUNT 3.29 M/MM3 (4.00-5.20)
[2016-09-13 18:19] LABS: ANION GAP 12 MEQ/L (5-15); BUN/CREATININE RATIO 29 RATIO (6-26); CALCIUM 9.2 MG/DL (8.4-10.2); CHLORIDE 106 MEQ/L (98-107); CO2 - CARBON DIOXIDE 23 MEQ/L (22-30); CREATININE 0.9 MG/DL (0.7-1.2); GLOMERULAR FILTRATION RATE 61; GLUCOSE 100 MG/DL (65-110); SODIUM 141 MEQ/L (134-144)
[2016-09-13 18:20] LABS: WBC - WHITE BLOOD COUNT 40.7 T/MM3 (4.5-11.0)
[2016-09-13 18:21] LABS: BAND NEUTROPHILS # 3.7 T/MM3; NEUTROPHILS #(MANUAL)-ABSOLUTE 36.6 T/MM3 (1.8-7.7)
[2016-09-13 18:22] LABS: LYMPHOCYTES # (MANUAL) 0.4 T/MM3 (1-4.8)
[2016-09-13 18:23] LABS: ANISOCYTOSIS 1+; POIKILOCYTOSIS 1+
[2016-09-13] MEDS ORDERED: IOHEXOL 300 MG/ML 75ml INJECTION ONE ×2 (18:27)
[2016-09-13] MEDS ORDERED: SALINE FLUSH 10ml SYRINGE ONE (18:28)
[2016-09-13] MEDS ORDERED: NORMAL SALINE 0 ML ONE (18:28)
--- NOTE | 2016-09-13 18:35 | NUR ---
REPORT REPORT TO AND CARE ASSUMED BY AMY LOPEZ
[2016-09-13 19:10] LABS: ALBUMIN 3.7 G/DL (3.5-5.0); ALBUMIN/GLOBULIN RATIO 1.5 RATIO (1.1-2.2); ALKALINE PHOSPHATASE 65 U/L (38-126); ALT (SGPT) 32 U/L (9-52); ANION GAP 13 MEQ/L (5-15); AST (SGOT) 25 U/L (14-36); BUN/CREATININE RATIO 33 RATIO (6-26); CALCIUM 9.3 MG/DL (8.4-10.2); CHLORIDE 107 MEQ/L (98-107); CO2 - CARBON DIOXIDE 22 MEQ/L (22-30); CREATININE 0.8 MG/DL (0.7-1.2); GLOMERULAR FILTRATION RATE 70; GLUCOSE 96 MG/DL (65-110); LIPASE 131 U/L (23-300); SODIUM 142 MEQ/L (134-144); TOTAL PROTEIN 6.1 G/DL (6.3-8.2)
--- NOTE | 2016-09-13 19:20 | NUR ---
STATUS PT AMBULATED TO PT BATHROOM AND RETURN TO ROOM AT THIS TIME WITH ASSIST OF WALKER AND GAIT BELT. ASSIST X1 - MINIMAL ASSIST REQUIRED. PT GAIT STABLE. NO SIGN OF DISTRESS AT THIS TIME.
[2016-09-13] MEDS ORDERED: IOHEXOL 350 MG/ML 75ml INJECTION ONE (19:24)
[2016-09-13] MEDS ORDERED: NORMAL SALINE 100 ML ONE (19:25)
--- NOTE | 2016-09-13 19:27 | NUR ---
IMAGING PT TO IMAGING AT THIS TIME VIA CART. NO SIGN OF DISTRESS AT THIS TIME.
--- NOTE | 2016-09-13 20:05 | NUR ---
IMAGING PT RETURN FROM IMAGING AT THIS TIME VIA CART.
[2016-09-13 20:56] LABS: BLOOD, URINE NEGATIVE (NEGATIVE); COLOR,URINE YELLOW (YELLOW); LEUKOCYTE ESTERASE ,URINE NEGATIVE (NEGATIVE); NITRITE,URINE NEGATIVE (NEGATIVE); UROBILINOGEN,URINE 0.2 EU/DL (NORMAL)
[2016-09-13] MEDS ORDERED: CIPROFLOXACIN 400mg in D5W 200ml BAG IV ONE (21:30)
[2016-09-13] MEDS ORDERED: METRONIDAZOLE IVPB 500 MG in NORMAL SALINE 100 ML IV ONE (21:30)
--- NOTE | 2016-09-13 22:10 | NUR ---
REPORT REPORT CALLED TO SF JOHN (ANUR[facility]) AT THIS TIME.
[2016-09-13 22:34] VITALS: BP 183/83; PULSE 96; RESP 22; TEMP 98.2; O2SAT 94
--- NOTE | 2016-09-13 22:34 | NUR ---
DEPART/TRANSFER PT TRANSFER TO [facility]IA [facility]. PAC ACCESSED, IVF AND FLAGYL RUNNING. PT DENIES PAIN AT THIS TIME. VITALS STABLE. AOX3 TRANSFERRED FROM CART TO EMS CART INDEPENDENTLY. FAMILY AT BEDSIDE. REPORT PREVIOUSLY CALLED. PERSONAL BELONGINGS AND MEDS WITH FAMILY.
--- NOTE | 2016-09-14 08:25 | DI ---
Indication: ITS.REASON: fall PROCEDURE: CT HEAD W/O CONTRAST: Encounter: Initial Comparison: May 07, 2014 Technique: Axial CT images through the head were performed without contrast. Iterative Reconstruction dose reducing technique was utilized. FINDINGS: Moderate atrophy. Old right clavicle could infarct. The ventricles are of normal size, shape, and configuration for the patient's age. There is no evidence of acute intracranial hemorrhage, midline displacement, or mass effect. There are scattered areas of low attenuation in the white matter which most likely represent changes of chronic microvascular ischemia. The CT attenuation of the brain parenchyma is otherwise normal within the cerebellum, brain stem, and cerebral hemispheres. The tympanic cavities and mastoid air cells are free of appreciable disease. There are no definite fractures of the skull base, calvarium, or visualized portion of the midface. IMPRESSION: No CT evidence of acute traumatic intracranial injury. There is a preliminary report by [facility]. .
--- NOTE | 2016-09-14 08:26 | DI ---
Indication: ITS.REASON: fall with neck pain PROCEDURE: CT CERVICAL SPINE W/O CONTRAST: Encounter: Initial Comparison: None Technique: Axial CT images through the cervical spine were performed without contrast. Coronal and sagittal reformatted images were also obtained. Automated Exposure Control and Iterative Reconstruction dose reducing techniques were utilized. FINDINGS: The alignment of the cervical spine is normal. Multilevel degenerative changes are present. There is no evidence of acute fracture or subluxation of the cervical spine. The facet joints are well aligned with preservation of the intervertebral disk and facet joints. The atlantoaxial articulation, dens, and upper cervical spine demonstrate no subluxation. There is no evidence of significant spinal stenosis, foraminal compromise, or significant disk herniation. Scarring and opacities in the lung apices. IMPRESSION: No acute traumatic abnormality of the cervical spine. There is a preliminary report by [facility]. .
--- NOTE | 2016-09-14 08:33 | DI ---
Indication: ITS.REASON: syncope with fall today. Abdominal pain and diarrhea. PROCEDURE: CTA PULMONARY EMBOLI: And CT abdomen/pelvis with contrast Encounter: Initial Comparison: Chest CT dated January 02, 2016 Technique: Axial CT pulmonary angiographic phase images were performed through the chest after the administration of intravenous contrast. Coronal and Sagittal MIP reconstructed images were created and reviewed. Axial CT imaging of the abdomen and pelvis was also performed after the administration of intravenous contrast with coronal and sagittal two-dimensional reformats. Automated Exposure Control and Iterative Reconstruction dose reducing techniques were utilized. Contrast: Omnipaque [address] angiogram of the chest for PE Findings: Pulmonary arteries: Exam is [gastric to the subsegmental pulmonary arterial level. No filling defects identified to suggest a pulmonary embolus. Other findings bilateral apical scarring and bronchiectasis in the lung apices. Calcified granuloma in the right middle lobe. No worrisome pulmonary nodule or mass. Central airways are patent. No axillary or mediastinal adenopathy. Heart is enlarged. Aortic root prosthesis. No pericardial effusion. Impression: No pulmonary embolus or acute intrathoracic disease process seen. CT abdomen and pelvis with contrast: Findings: The liver appears normal. Gallbladder is surgically absent. The spleen is unremarkable. The pancreas and adrenal glands are within normal limits. Right renal probable cyst. Left kidney appears normal. Small mesenteric and omental metastatic implants are again noted. These are stable to slightly smaller. Inguinal adenopathy has significantly decreased. Postoperative changes from prior bowel resections. Bladder is normal. No evidence of a bowel obstruction or free air multiple surgical clips in the anterior abdomen and mesenteric region. Bone windows show no acute displaced fractures. Impression: No acute traumatic abnormality seen in the abdomen or pelvis. Decreasing pelvic adenopathy. There is a preliminary report by [email or web address]. .
== END 2016-09-13 22:34 | disposition short-term general hospital (02) ==
LOC: ED 17:25
DX: R19.7 Diarrhea, unspecified (principal); E86.0 Dehydration; R55 Syncope and collapse; D72.829 Elevated white blood cell count, unspecified
CPT/HCPCS: 36415; 70450; 71275; 72125; 74177; 80048; 80053; 81003; 83605; 83690; 84145; 84484; 85025; 87040; 93005; 96361; 96365; 96375; 99285; J2405; J7030; J7050; Q9967